=== PATIENT | male | born 1975 | race Caucasian/White ===

== ENCOUNTER 2019-04-06 20:21 | Emergency (ER) | payer OTHER, SELFPAY ==
[2019-04-06 20:35] VITALS: BP 152/97; PULSE 104; RESP 22; TEMP 37.1; O2SAT 100
[2019-04-06 21:18] VITALS: BP 152/97; PULSE 104; RESP 16; TEMP 38; O2SAT 99
[2019-04-06] MEDS: AZITHROMYCIN 250 MG TABLET 1000 MG PO (21:45)
[2019-04-06] MEDS: metroNIDAZOLE 250 MG TABLET 2000 MG PO (21:45)
[2019-04-06] MEDS: cefTRIAXone 250 MG VIAL IM (21:46)
--- NOTE | 2019-04-06 21:50 | PC.NURSE ---
rocephin im rt buttock ventrogluteal
--- NOTE | 2019-04-06 21:52 | ED.GENADULT ---
HPI - General Adult General Chief complaint: Dental/Oral <Darrell Barron PA-C - Last Filed: 04/06/19 21:55> Stated complaint: wound on tongue <Darrell Barron PA-C - Last Filed: 04/06/19 21:55> Time Seen by Provider: 04/06/19 20:32 <Darrell Barron PA-C - Last Filed: 04/06/19 21:55> Source: patient <Darrell Barron PA-C - Last Filed: 04/06/19 21:55> Mode of arrival: ambulatory <Darrell Barron PA-C - Last Filed: 04/06/19 21:55> Limitations: no limitations <Darrell Barron PA-C - Last Filed: 04/06/19 21:55> History of Present Illness HPI narrative: Patient is a 43-year-old male who presents to emergency department for evaluation of wound to the right anterior lateral tongue that is been there for the last several days. Patient also notes he is having drainage from the penis and would like to be tested and treated for STDs. Patient denies vomiting diarrhea or URI symptoms. Patient notes he has had STDs in the past. Patient on arrival is in no distress but is anxious and notes drug use <Darrell Barron PA-C - Last Filed: 04/06/19 21:55> Related Data Home medications: Home Medications Medication Instructions Recorded Confirmed lisinopril 04/06/19 <Darrell Barron PA-C - Last Filed: 04/06/19 21:55> Allergies/adverse reactions: Allergies Allergy/AdvReac Type Severity Reaction Status Date / Time No Known Allergies Allergy Verified 04/06/19 21:26 <Darrell Barron PA-C - Last Filed: 04/06/19 21:55> Review of Systems Review of Systems: All systems reviewed & are unremarkable except as noted in HPI and below <Darrell Barron PA-C - Last Filed: 04/06/19 21:55> [facility] Social History Social History: Social History (Updated 04/06/19 @ 21:53 by Darrell Barron PA-C) Smoking status: Current every day smoker Substance use type: methamphetamine Gender identity (if verbalized by the patient): Male <Darrell Barron PA-C - Last Filed: 04/06/19 21:55> Exam Narrative: Exam Narrative: GENERAL: Well-appearing, well-nourished, and in no acute distress. HEAD: Normocephalic, atraumatic. EYES: PERRLA and EOMI. ENT: Nares clear, no rhinorrhea or epistaxis. Mucous membranes moist. Oropharynx without tonsillar hypertrophy exudate or other lesions. No wounds of the tongue noted CHEST: Clear to auscultation. No respiratory distress. No wheezes rales or rhonchi HEART: Regular rate and rhythm. No murmur heard. EXTREMITIES: Normal range of motion. No edema. SKIN: Warm, dry, no rash. NEURO: No focal deficits. Alert and oriented x3. PSYCH: Normal mood and affect. <MARIANN Austin Last Filed: 04/06/19 21:55> Course Course Emergency Course: Patient in the room in no distress aware of case findings treatment plan and diagnosis <MARIANN Austin Last Filed: 04/06/19 21:55> Vital Signs Vital signs: Vital Signs Temperature 37.1 C 04/06/19 20:35 Pulse Rate 104 H 04/06/19 20:35 Respiratory Rate 22 H 04/06/19 20:35 Blood Pressure 152/97 H 04/06/19 20:35 Pulse Oximetry 100 04/06/19 20:35 Temperature 38.0 C H 04/06/19 21:18 Pulse Rate 104 H 04/06/19 21:18 Respiratory Rate 16 04/06/19 21:18 Blood Pressure 152/97 H 04/06/19 21:18 Pulse Oximetry 99 04/06/19 21:18 <MARIANN Austin Last Filed: 04/06/19 21:55> Vital Signs Temperature 37.1 C 04/06/19 20:35 Pulse Rate 104 H 04/06/19 20:35 Respiratory Rate 22 H 04/06/19 20:35 Blood Pressure 152/97 H 04/06/19 20:35 Pulse Oximetry 100 04/06/19 20:35 Temperature 38.0 C H 04/06/19 21:18 Pulse Rate 104 H 04/06/19 21:18 Respiratory Rate 16 04/06/19 21:18 Blood Pressure 152/97 H 04/06/19 21:18 Pulse Oximetry 99 04/06/19 21:18 <Isis Torres MD - Last Filed: 04/07/19 00:28> Medical Decision Making MDM Narrative Medical decision making narrative: Patient will be referred to ENT f
[2019-04-06 22:03] LABS: Add Urine Microscopic? YES; Appearance Urine Cloudy (Clear); Bacteria Urine Trace /hpf; Bilirubin Urine Negative (Negative); Blood Urine Negative (Negative); Color Urine Yellow (Yellow); Glucose Urine UA Negative (Negative); Ketones Urine Negative (Negative); Leukocyte Esterase Ur Negative LEU/UL (Negative); Mucus Urine Heavy /lpf; Nitrate Urine Negative (Negative); Protein Urine 1+ mg/dL (Negative); Specific Grav Ur 1.019 (1.001-1.035); Urobilinogen Urine Negative mg/dL (<2.0); WBC Urine 0-3 /hpf
[2019-04-06 22:31] LABS: Barbiturate Screen Urine Negative (Negative); Benzodiazepines Screen Urine Negative (Negative)
[2019-04-06 22:33] LABS: Cannabinoid Screen Urine Positive (Negative); Cocaine Screen Urine Negative (Negative); Methadone Screen Urine Negative (Negative); Opiate Screen Urine Negative (Negative); Phencyclidine Screen Urine Negative (Negative)
[2019-04-06 22:52] LABS: Amphetamine Screen Urine Positive (Negative)
== END 2019-04-06 22:02 | disposition home or self-care (01) ==
PROVIDERS: Emergency Medicine Emergency Medical Services; Emergency Provider Emergency Medicine; PCP Registered Nurse
DX: K14.9 Disease of tongue, unspecified (principal); A64 Unspecified sexually transmitted disease; F17.200 Nicotine dependence, unspecified, uncomplicated
CPT/HCPCS: 80307; 81001; 87491; 87591; 96372; 99283; A9270; J0696

== ENCOUNTER 2019-04-12 11:10 | Emergency (ER) | payer OTHER, SELFPAY ==
[2019-04-12 11:23] VITALS: BP 137/76; PULSE 96; RESP 16; TEMP 36.1; O2SAT 100
== END 2019-04-12 12:00 | disposition left against medical advice (07) ==
LOC: EXPCOLL 11:13
PROVIDERS: Emergency Provider Registered Nurse; PCP Registered Nurse
DX: S01.502A Unspecified open wound of oral cavity, initial encounter (principal); X58.XXXA Exposure to other specified factors, initial encounter
CPT/HCPCS: 99199

== ENCOUNTER 2019-06-03 18:58 | Emergency (ER) | payer OTHER, SELFPAY ==
[2019-06-03 19:07] VITALS: BP 142/76; PULSE 109; RESP 18; TEMP 37.4; O2SAT 100
--- NOTE | 2019-06-03 19:36 | ED.GENADULT ---
HPI - General Adult General Chief complaint: Unspecified <MARIANN Snider Last Filed: 06/03/19 20:12> Stated complaint: parasties <Kacy Santillan PA-C - Last Filed: 06/03/19 20:12> Time Seen by Provider: 06/03/19 19:03 <Kacy Santillan PA-C - Last Filed: 06/03/19 20:12> Source: patient <MARIANN Snider Last Filed: 06/03/19 20:12> Mode of arrival: ambulatory <MARIANN Snider Last Filed: 06/03/19 20:12> Limitations: no limitations <MARIANN Snider Last Filed: 06/03/19 20:12> History of Present Illness HPI narrative: Patient is here with his girlfriend because they both feel that they have bugs coming another skin, and there stool in today from his nose. He brought in a specimen. He states that he was treated at another hospital earlier this month for the same condition and was prescribed a green pill and something else that was too expensive. When he was seen here last he was referred to ENT for same same complaint about his mouth and gums having holes in them. He lost the number for the ENT. He feels that he got the bugs as a sexually transmitted disease from his girlfriend. He states that he can feel like bugs moving under his skin, the sores on his legs and hands are from bugs leaving his skin, and he itches all the time. <Kacy Santillan PA-C - Last Filed: 06/03/19 20:12> Onset (ago): week(s) <MARIANN Snider Last Filed: 06/03/19 20:12> Treatments prior to arrival: none <MARIANN Snider Last Filed: 06/03/19 20:12> Related Data Allergies/adverse reactions: Allergies Allergy/AdvReac Type Severity Reaction Status Date / Time No Known Allergies Allergy Verified 06/03/19 19:14 <MARIANN Snider Last Filed: 06/03/19 20:12> Review of Systems Review of Systems: All systems reviewed & are unremarkable except as noted in HPI and below <Kacy Santillan PA-C - Last Filed: 06/03/19 20:12> [facility] Social History Social History: Social History (Updated 06/03/19 @ 19:43 by Kacy Santillan PA-C) Smoking status: Current every day smoker Substance use type: methamphetamine Other substance usage details: is denying meth use at this time. Living arrangements: with family Gender identity (if verbalized by the patient): Male <Kacy Santillan PA-C - Last Filed: 06/03/19 20:12> Exam Const: General: no acute distress and alert <Kacy Santillan PA-C - Last Filed: 06/03/19 20:12> Orientation/consciousness: patient oriented x3 <Kacy Santillan PA-C - Last Filed: 06/03/19 20:12> HENMT: Head: normal to inspection <Kacy Santillan PA-C - Last Filed: 06/03/19 20:12> General nose exam: Normal nasal mucous membranes and turbinates present <Kacy Santillan PA-C - Last Filed: 06/03/19 20:12> Mouth: Yes Normal oral and palatal mucosa present and Yes tongue normal <Kacy Santillan PA-C - Last Filed: 06/03/19 20:12> Teeth and gingiva: caries <Kacy Santillan PA-C - Last Filed: 06/03/19 20:12> Eyes: Pupils: Equal, round and reactive pupils present <Kacy Santillan PA-C - Last Filed: 06/03/19 20:12> Resp: Effort & Inspection: normal respiratory effort <Kacy Santillan PA-C - Last Filed: 06/03/19 20:12> Auscultation: clear to auscultation bilaterally <Kacy Santillan PA-C - Last Filed: 06/03/19 20:12> Cardio: Rate: regular rate <Kacy Santillan PA-C - Last Filed: 06/03/19 20:12> Rhythm: regular rhythm <Kacy Santillan PA-C - Last Filed: 06/03/19 20:12> Skin: General skin exam: normal color <MARIANN Snider Last Filed: 06/03/19 20:12> Wounds: wounds noted (multiple scabs on legs, hands and arms.) <MARIANN Snider Last Filed: 06/03/19 20:12> Extrem: General: normal to inspection <MARIANN Snider Last Filed: 06/03/19 20:12> Psych: Appearance: grossly normal <MARIANN Snider Last Filed: 06/03/19 20:12> Course Course Emergency Course: Pt is
== END 2019-06-03 20:15 | disposition home or self-care (01) ==
PROVIDERS: Emergency Provider General Practice; PCP Registered Nurse
DX: Z71.1 Person with feared health complaint in whom no diagnosis is made (principal); F17.200 Nicotine dependence, unspecified, uncomplicated
CPT/HCPCS: 36415; 87169; 87177; 87209; 99283

== ENCOUNTER 2019-06-17 02:38 | Emergency (ER) | payer OTHER, SELFPAY ==
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
[2019-06-17 03:05] VITALS: BP 138/109; PULSE 120; RESP 18; TEMP 36.6; O2SAT 100
--- NOTE | 2019-06-17 03:13 | PC.NURSE ---
PT BLOWING HIS NOSE IN HIS HANDS. PT STATES I WILL MAKE THESE WORMS COME OUT. PT PICKING HIS NOSE. PT GIRLFRIEND REPEATEDLY SAYING LOOK AT THIS TOE NAIL, THERE ARE WORMS ALL OVER IT. NO WORMS NOTED.
== END 2019-06-17 03:27 | disposition home or self-care (01) ==
PROVIDERS: Emergency Provider Emergency Medicine
DX: S90.212A Contusion of left great toe with damage to nail, initial encounter (principal); R20.2 Paresthesia of skin; F17.203 Nicotine dependence unspecified, with withdrawal; X58.XXXA Exposure to other specified factors, initial encounter
CPT/HCPCS: 99281

== ENCOUNTER 2020-03-29 00:57 | Emergency (ER) | payer OTHER, SELFPAY ==
[2020-03-29 01:04] VITALS: BP 161/114; PULSE 105; RESP 20; TEMP 36.8; O2SAT 100
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
[2020-03-29 01:33] VITALS: BP 148/92; PULSE 94; RESP 16; TEMP 36.8; O2SAT 100
== END 2020-03-29 01:34 | disposition home or self-care (01) ==
PROVIDERS: Emergency Provider Nurse Practitioner; PCP Registered Nurse
DX: T59.891A Toxic effect of other specified gases, fumes and vapors, accidental (unintentional), initial encounter (principal); T23.531A Corrosion of first degree of multiple right fingers (nail), not including thumb, initial encounter; T32.0 Corrosions involving less than 10% of body surface; F17.200 Nicotine dependence, unspecified, uncomplicated
CPT/HCPCS: 99282

== ENCOUNTER 2022-10-12 15:48 | Emergency (ER) | payer OTHER, SELFPAY ==
[2022-10-12] VITALS (11 sets, daily range): BP systolic 113–138; BP diastolic 72–93; PULSE 92–114; RESP 13–16; O2SAT 98–100
--- NOTE | ~2022-10-12 | XR_ITS ---
EXAMINATION: XR chest 2V DATE: 10/12/2022 16:36 INDICATION: Chest pain TECHNIQUE: PA and lateral views of the chest are obtained. COMPARISON: 08/11/2011 FINDINGS: The lungs are free of acute opacities. No pleural effusion or pneumothorax. The cardiomedia stinal silhouette is normal. The visualized bones and soft tissues are unremarkable. IMPRESSION: 1. No acute cardiopulmonary abnormality. Reviewed, dictated and finalized at location A.
--- NOTE | 2022-10-12 15:49 | ECG_ITS ---
Measurements Intervals [place] Rate: 104 P: 48 RI: 157 QRS: -11 QRSD: 95 T: 69 QT: 324 QTc: 428 Interpretive Statements SINUS TACHYCARDIA POSSIBLE LEFT ATRIAL ENLARGEMENT [-0.1mV P WAVE IN V1/V2] NONSPECIFIC T-WAVE ABNORMALITY ABNORMAL RHYTHM ECG NO PREVIOUS ECG AVAILABLE FOR COMPARISON Electronically Signed On 10-13-2022 11:13:13 CDT by Jessica Garcia M.D.
[2022-10-12 16:10] LABS: Basophils Percent Auto 0.3 % (0.2-1.2); Eosinophils Absolute Auto 0.1 K/mm3 (0-0.3); Hematocrit 47.5 % (42.0-52.0); Hemoglobin 16.2 g/dL (14.0-18.0); Immature Granulocyte Absolute 0.02 K/mm3 (0.00-0.031); Immature Granulocyte Percent A 0.2 % (0-0.5); Lymphocytes Absolute Auto 2.39 K/mm3 (0.9-3.2); Lymphocytes Percent Auto 24.5 % (18.3-44.2); Mean Corpuscular HGB Conc 34.1 g/dl (32-36); Mean Corpuscular Hemoglobin 30.7 pg (26-34); Mean Corpuscular Volume 90.1 fl (80-100); Mean Platelet Volume 10.1 fl (7.4-10.4); Monocytes Absolute Auto 0.6 K/mm3 (0.1-0.6); Monocytes Percent Auto 6.6 % (2.6-8.5); Neutrophils Absolute Auto 6.6 K/mm3 (1.3-6.7); Neutrophils Percent Auto 67.4 % (45.5-73.1); Platelet Count Result 392 k/mm3 (150-375); Red Blood Count 5.27 M/mm3 (4.6-6.20); Red Cell Distribution Width 12.6 % (11.5-14.5); White Blood Count 9.8 K/mm3 (4.5-10.0)
[2022-10-12 16:20] LABS: Alanine Aminotransferase 32 U/L (6-50); Albumin Level 4.8 g/dL (3.5-5.1); Alkaline Phosphatase 90 U/L (38-126); Anion Gap 11 mmol/L (8-16); Aspartate Amino Transferase 27 U/L (17-59); Bilirubin,Total 0.7 mg/dL (0.2-1.3); Blood Urea Nitrogen 14 mg/dL (9-20); Calcium 8.9 mg/dL (8.4-10.2); Carbon Dioxide 21 mmol/L (22-30); Chloride 104 mmol/L (98-107); Estimated Glomerular Filt Rate > 60; Glucose 165 mg/dL (65-110); Lipase 32 U/L (23-300); Potassium 3.3 mmol/L (3.4-5.0); Sodium 136 mmol/L (137-145)
[2022-10-12 16:21] LABS: INR 0.9; Prothrombin Time 12.9 Seconds (11.1-14.7)
[2022-10-12 16:22] LABS: Partial Thromboplastin Time 28.3 SECONDS (22.3-36.8)
[2022-10-12 16:32] LABS: Troponin I < 0.012 ng/mL (0.000-0.034)
[2022-10-12 19:33] LABS: Troponin I < 0.012 ng/mL (0.000-0.034)
--- NOTE | 2022-10-12 23:16 | ED.GENADULT ---
HPI - General Adult General Chief complaint: Chest Pain Stated complaint: cp Time Seen by Provider: 10/12/22 19:05 History of Present Illness HPI narrative: This is a 46-year-old male with history of developmental delay presenting for shortness of breath and chest pain. Patient says that he got up and tried to move heavy box 2 days ago and he became short of breath and started to have some chest tightness. Chest tightness was in the center of his chest, nonradiating, 8 out 10 intensity, resolved after 30 minutes rest. he has never had pain like this before there are no exacerbating relieving symptoms. It was not associated with diaphoresis, cough fevers nausea vomiting. He does not currently have symptoms. patient states he thinks he is just out of shape. He says that his activity involves lying in bed and smoking cigarettes. Related Data Home Medications Medication Instructions Recorded Confirmed lisinopril 10 mg tablet 10 mg PO DAILY 06/17/19 06/17/19 Allergies Allergy/AdvReac Type Severity Reaction Status Date / Time No Known Allergies Allergy Verified 10/12/22 18:31 [facility] Past Medical History Medical History No significant past medical history Surgical History Surgical History No significant past surgical history Social History Social History Smoking status: Current every day smoker Substance use type: methamphetamine Other substance usage details: is denying meth use at this time. Living arrangements: with family Gender identity (if verbalized by the patient): Male Exam Narrative: APPEARANCE: No apparent distress. Head: atraumatic. EYES: EOMI, NOSE: Atraumatic NECK: Trachea midline RESPIRATORY: No increased rate of breathing, clear to auscultation CARDIOVASCULAR: RRR, no peripheral edema ABDOMINAL: Non-distended MUSCULOSKELETAl: No obvious deformities NEURO: Alert. Moving 4/4 extremities SKIN:: Warm, dry. Normal color PSYCHIATRIC: Normal affect Course Vital Signs Vital signs: Vital Signs Pulse Rate 97 10/12/22 18:36 Respiratory Rate 16 10/12/22 18:36 Blood Pressure 128/93 H 10/12/22 18:36 Pulse Oximetry 98 10/12/22 18:36 Pulse Rate 100 10/12/22 21:00 Respiratory Rate 16 10/12/22 21:00 Blood Pressure 138/87 10/12/22 21:00 Pulse Oximetry 99 10/12/22 21:00 Medical Decision Making MDM Narrative Medical decision making narrative: -Presentation: 46-year-old male presenting with shortness of breath and some chest tightness when lifting heavy box. -DDX includes but is not limited to: ACS, asthma, debility, pneumonia, pneumothorax, PE -Co-morbidities complicating care: developmental delay, sedentary lifestyle, tobacco use -Social determinants of health: disabled due to mentation. -External Chart Review: -Hx from independent Sources: oncology social work at bedside -Independent interpretation of studies: laboratory studies within acceptable limits. Troponins negative x2. Chest x-ray unremarkable. Independent EKG interpretation: Rhythm [sinus], Rate [104], Ledger -[normal], CT -[normal], QRS [narrow], QTC [normal], T waves -[negative for concerning inversions], ST Segments - [Negative for concerning elevations] Final interpretations: sinus tachycardia -Shared decision making / Disposition: Patient's EKGs and labs are reviewed without significant high risk changes. Cardiac risk factors reviewed. Heart score is <4 and it iss reasonable for further risk stratification to be performed as outpatient. Pain was not sudden or maximal onset not tearing or ripping quality. No other signs or symptoms suggest aortic dissection. A low risk Wells criteria is noted. PE is felt to be unlikely. No pneumonia seen on evaluation today. Patient is felt to be reasonable candidate
== END 2022-10-12 23:27 | disposition home or self-care (01) ==
LOC: ANHED 19:36
PROVIDERS: Emergency Medicine; Emergency Provider Emergency Medicine; PCP Emergency Medicine
DX: R07.89 Other chest pain (principal); F17.200 Nicotine dependence, unspecified, uncomplicated; R00.0 Tachycardia, unspecified; R94.31 Abnormal electrocardiogram [ECG] [EKG]
CPT/HCPCS: 36415; 71046; 80053; 83690; 84484; 85025; 85610; 85730; 93005; 99284

== ENCOUNTER 2023-09-23 11:19 | Emergency (ER) | payer OTHER, SELFPAY ==
[2023-09-23 11:25] VITALS: BP 122/62; PULSE 96; RESP 16; TEMP 36.3; O2SAT 100
[2023-09-23 12:24] VITALS: BP 123/79; PULSE 79; RESP 20; O2SAT 97
[2023-09-23 12:52] LABS: Glucose Point of Care 112 mg/dl (65-105)
--- NOTE | 2023-09-23 12:54 | ED.GENADULT ---
HPI - General Adult General Chief complaint: Eye Problems Stated complaint: eye problems Time Seen by Provider: 09/23/23 12:23 History of Present Illness HPI narrative: This is a 47-year-old male with developmental delay and poor insight into his medical conditions presenting for eye irritation. Patient has had eye irritation for 3 days. No pain. No changes in vision. No foreign bodies in his eyes. No associated URI symptoms cough congestion or allergies. Patient states that 1 of his friends recently got a crystal ball and he has been looking into it and he was curious if that is what is irritating his eyes. Patient has a returned case inspector who handles most of his medical visits. She is not here today Related Data Home Medications Medication Instructions Recorded Confirmed lisinopril 10 mg tablet 10 mg PO DAILY 06/17/19 06/17/19 Allergies Allergy/AdvReac Type Severity Reaction Status Date / Time No Known Allergies Allergy Verified 10/12/22 18:31 [facility] Past Medical History Medical History (Updated 09/23/23 @ 13:00 by French Aleman MD) Developmental delay, moderate Diabetes No significant past medical history Surgical History Surgical History No significant past surgical history Social History Social History Smoking status: Current every day smoker Substance use type: methamphetamine Other substance usage details: is denying meth use at this time. Living arrangements: with family Gender identity (if verbalized by the patient): Male Exam Narrative: APPEARANCE: No apparent distress. Head: atraumatic. EYES: EOMI, extraocular eye movements intact. IOP 12 bilaterally, fluorescein stain uptake negative. Visual acuity at baseline. NOSE: Atraumatic NECK: Trachea midline RESPIRATORY: No increased rate of breathing CARDIOVASCULAR: RRR, ABDOMINAL: Non-distended MUSCULOSKELETAl: No obvious deformities NEURO: Alert. Moving 4/4 extremities SKIN:: Warm, dry. Normal color PSYCHIATRIC: Normal affect Course Vital Signs Vital signs: Vital Signs Temperature 97.3 F L 09/23/23 11:25 Pulse Rate 96 09/23/23 11:25 Respiratory Rate 16 09/23/23 11:25 Blood Pressure 122/62 09/23/23 11:25 Pulse Oximetry 100 08/01/24 11:25 Oxygen Delivery Room Air 09/23/23 11:25 Temperature 97.3 F L 09/23/23 11:25 Pulse Rate 79 09/23/23 12:24 Respiratory Rate 20 09/23/23 12:24 Blood Pressure 123/79 09/23/23 12:24 Pulse Oximetry 97 09/23/23 12:24 Oxygen Delivery Room Air 09/23/23 11:25 Medical Decision Making MDM Narrative Medical decision making narrative: -Course: 47-year-old male presenting with 3 days of eye irritation. Eye exam unremarkable. Patient will be given eyedrops for moisturization. Instructed follow-up with primary care physician content strategist for further management. -DDX includes but is not limited to: Keratoconjunctivitis sicca, corneal ulceration, allergic conjunctivitis -Co-morbidities complicating care: developmental delay, diabetes -Social determinants of health: patient this with family, he has a returned case inspector cyst him with his care -Shared decision making / Disposition: discharged -RX moisturizing eyedrops Vital Signs Vital Signs: Vital Signs Temperature 97.3 F L 09/23/23 11:25 Pulse Rate 96 09/23/23 11:25 Respiratory Rate 16 09/23/23 11:25 Blood Pressure 122/62 09/23/23 11:25 Pulse Oximetry 100 09/23/23 11:25 Oxygen Delivery Room Air 09/23/23 11:25 Temperature 97.3 F L 09/23/23 11:25 Pulse Rate 79 09/23/23 12:24 Respiratory Rate 20 09/23/23 12:24 Blood Pressure 123/79 09/23/23 12:24 Pulse Oximetry 97 09/23/23 12:24 Oxygen Delivery Room Air 09/23/23 11:25 Lab Data Labs: Lab Results 09/23/23 Range/Units 12:50 POC Capillary Glucose 112 H (65-105) mg/dl
[2023-09-23 13:24] VITALS: PULSE 82; RESP 14; O2SAT 100
== END 2023-09-23 13:25 | disposition home or self-care (01) ==
PROVIDERS: Emergency Provider Emergency Medicine; PCP Emergency Medicine
DX: H57.10 Ocular pain, unspecified eye (principal); R62.50 Unspecified lack of expected normal physiological development in childhood; F17.200 Nicotine dependence, unspecified, uncomplicated
CPT/HCPCS: 82948; 99283

== ENCOUNTER 2024-07-11 23:13 | Emergency (ER) | payer OTHER, SELFPAY ==
[2024-07-11 23:14] VITALS: BP 140/83; PULSE 100; RESP 18; TEMP 36.6; O2SAT 100
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
--- OUTSIDE RECORDS SUMMARY | 2024-07-11 23:14 | XMS_ITS | Data Portability ---
Author Organization [place] - [facility], [employer] Address [address] [place] [address] Assessment Encounter Date Assessment Date Assessment LastModified by Organization Details LastModified Time 12/13/2023 12/13/2023 Assessment: Hypertension, well-controlled (I10) Current blood pressure is at goal despite not taking antihypertensive medications. Will continue to monitor. Type 2 Diabetes Mellitus, uncontrolled (E11.65) Non-adherence to medication (Jardiance) and dietary recommendations. At risk for hyperlipidemia and other complications if diabetic control is not achieved. Poor nutritional habits contributing to suboptimal diabetes control (Z72.4) Patient admits to unhealthy eating habits and periods of food avoidance, putting him at risk for further metabolic complications. Plan: Diabetes management: Reinforce the importance of medication adherence, particularly with Jardiance, to manage blood sugar levels effectively. Encourage consistent use of the medication. Order labs to assess HbA1c, lipid profile, renal function, and liver enzymes. Adjust follow-up based on lab results. Dietary counseling: Provided extensive counseling on the importance of adhering to a diabetic diet to manage both diabetes and cholesterol levels. Referred to a solar energy installation manager/eitan tovar for formal dietary planning and education on healthy eating to support better blood sugar control and overall health. Lifestyle modifications: Discussed the importance of regular meals and reducing the intake of processed and junk foods. Encouraged small, frequent meals rich in vegetables, lean proteins, and whole grains. Recommended increasing physical activity if cleared by future labs and based on blood sugar management. Follow-up: Return for follow-up in 3 months, sooner if labs indicate worsening control or need for intervention. Will review lab results and adjust care plan as necessary. Signs and symptoms of when to seek further care reviewed with patient/caregiver/ family/facility staff. Patient to follow up with primary care provider or return to clinic for any worsening signs and symptoms. Always present to ER or Urgent Care with any progression of/alarming symptoms, significant changes in symptoms or any concerning or urgent matters. Patient/caregiver/ family/facility staff verbalized agreement and understanding of treatment plan. F/U 12 weeks, sooner if needed My total encounter time was 60 minutes which was spent in the activities documented in the note. This includes time spent prior to the visit, performing a medically appropriate examination with evaluation, and after the visit in direct care of the patient (history and exam; ordering prescriptions/labs /imaging/home health/therapy/spe cialists; communicating results to patient and/or other relative individuals; counseling/educati ng patient; documenting clinical information in patient s chart; coordination of care for the patient). This time does not include time spent in any separately reportable services. [email or web address] Not available 12/13/2023 15:55:32 Plan of Treatment Reminders Order Date Submit Date Provider Last Modified By Organization Details Last Modified Time Details Appointments None recorded. Lab drug screen, urine 2023 [facility], [address], [place], [address], 15:30:42 lipid panel, serum 2023 [facility], [id number] [place], [address], 10:41:46 CMP, serum or plasma 2023 [facility], [id number] [place], [address], 10:41:48 CBC 2023 [facility] [facility], [address] [place], [address], 11:26:35 magnesium, serum or plasma 2023 [facility], [address] [place], [address], 10:41:47 HbA1c (hemoglobi n A1c), blood 2023 [facility] [place] [facility], [address] [place], [address], 10:44:16 urinalysis , complete 2023 [facility] [place] [facility], [address], [place] Vas[place], [address], 11:26:[address]/dietiti an referral [address], [address] [place], [address], 11:13:59 Procedures None recorded. Surgeries None recorded. Imaging None recorded. Medication Orders None recorded. Patient TargetsNo targets recorded. Patient InstructionsNo instructions recorded. Reason for Referral Skiver Machine Operator/dietitian Refer ral for Hyperglycemia due to type 2 diabetes mellitus Referring Physician: Leslie Argueta, Internal Medicine, Encounter Date: 12/13/2023 Results Created Date Observation Date Name Description Value Unit Range Abnormal Flag Note LastModifiedBy Organization Detail LastModifiedTime 12/13/1912/14/2023 LIPID PANEL , STAND VANESSA cholesterol, total 188 mg/dL <200 normal Not Available [facility] [address] [place], [address], 12/14/2023 10:41:46 12/13/1912/14/2023 LIPID PANEL , STAND VANESSA HDL cholesterol 40 mg/dL > or = 40 normal Not Available [facility] [address] [place], [address], 12/14/2023 10:41:46 12/13/1912/14/2023 LIPID PANEL , STAND VANESSA triglyceride s 157 mg/dL <150 high Not Available [facility] [address] [place], [address], 12/14/2023 10:41:46 12/13/1912/14/2023 LIPID PANEL , STAND VANESSA LDL-choleste rol 121 mg/dL _(channing c) high Refer ence range : <100 Ayde able range <100 mg/dL for prima ry preve ntion ; <70 mg/dL for patie nts with CHD or diabe tic patie nts with > or = 2 CHD risk facto rs. LDL-C is now calcu lated using the Deisi n-Hop kins calcu latio n, which is a valid ated novel luiso d browni everett reid r accur acy than the Fried emmanuelle equat ion in the estim ation of LDL-C . Deisi messer SS et al. CARLOS. 2013; 310(1 9): 2061- 2068 (http ://ed ati on.Qu Kristy Newswired. com/f aq/FA Q164) Not Available [facility] [address], [place], [address], 12/14/2023 10:41:46 12/13/19 24 12/14/2023 LIPID PANEL , STAND VANESSA chol/HDLC ratio 4.7 (calc ) <5.0 normal Not Available [facility] [address] [place], [address], 12/14/2023 10:41:46 12/13/19 24 12/14/2023 LIPID PANEL , STAND VANESSA non HDL cholesterol 148 mg/dL _(channing c) <130 high For patie nts with diabe pretty plus 1 major ASCVD risk facto r, treat ing to a non-H DL-C goal of <100 mg/dL (LDL- C of <70 mg/dL ) is consi jada joy optio n. Not Available [facility] [address] [place], [address], 12/14/2023 10:41:46 10/12/14/2023 MAGNE SIUM magnesium 2.3 mg/dL 1.5-2. 5 normal Not Available [address], [address], 12/14/2023 10:41:47 12/13/1912/14/2023 COMPR EHENS RUDDY METAB OLIC PANEL glucose 105 mg/dL 65-99 high Fasti ng refer ence inter sumeet For someo ne witho ut known diabe pretty, a gluco se value betwe en 100 and 125 mg/dL is consi stent with predi abete s and shoul d be confi rmed with a follo w-up test. Not Available [address], [address], 12/14/2023 10:41:48 12/13/19 24 12/14/2023 COMPR EHENS RUDDY METAB OLIC PANEL urea nitrogen (BUN) 18 mg/dL 7-25 normal Not Available [address], [address], 12/14/2023 10:41:48 12/13/19 24 12/14/2023 COMPR EHENS RUDDY METAB OLIC PANEL creatinine 0.96 mg/dL 0.60-1 .29 normal Not Available [address], [address], 12/14/2023 10:41:48 12/13/19 24 12/14/2023 COMPR EHENS RUDDY METAB OLIC PANEL eGFR 99 mL/mi n/1.7 3m2 > or = 60 normal Not Available [address], [address], 12/14/2023 10:41:48 12/13/19 24 12/14/2023 COMPR EHENS RUDDY METAB OLIC PANEL BUN/creatini ne ratio SEE NOTE: (calc ) 6-22 Not Repor vi: BUN and Creat inine are withi n refer ence range . Not Available [address] [place], [address], 12/14/2023 10:41:48 12/13/1912/14/2023 COMPR EHENS RUDDY METAB OLIC PANEL sodium 138 mmol/ L 135-14 6 normal Not Available [address], [address], 12/14/2023 10:41:48 12/13/1912/14/2023 COMPR EHENS RUDDY METAB OLIC PANEL potassium 3.7 mmol/ L 3.5-5. 3 normal Not Available [address], [address], 12/14/2023 10:41:48 12/13/1912/14/2023 COMPR EHENS RUDDY METAB OLIC PANEL chloride 102 mmol/ L 98-110 normal Not Available [address], [address], 12/14/2023 10:41:48 12/13/1912/14/2023 COMPR EHENS RUDDY METAB OLIC PANEL carbon dioxide 29 mmol/ L 20-32 normal Not Available [address], [address], 12/14/2023 10:41:48 12/13/1912/14/2023 COMPR EHENS RUDDY METAB OLIC PANEL calcium 9.6 mg/dL 8.6-10 .3 normal Not Available [address], [address], 12/14/2023 10:41:48 12/13/1912/14/2023 COMPR EHENS RUDDY METAB OLIC PANEL protein, total 7.4 g/dL 6.1-8. 1 normal Not Available [address], [address], 12/14/2023 10:41:48 12/13/1912/14/2023 COMPR EHENS RUDDY METAB OLIC PANEL albumin 4.4 g/dL 3.6-5. 1 normal Not Available [address], [address], 12/14/2023 10:41:48 12/13/1912/14/2023 COMPR EHENS RUDDY METAB OLIC PANEL globulin 3.0 g/dL_ (calc ) 1.9-3. 7 normal Not Available [address], [address], 12/14/2023 10:41:48 12/13/1912/14/2023 COMPR EHENS RUDDY METAB OLIC PANEL albumin/glob ulin ratio 1.5 (calc ) 1.0-2. 5 normal Not Available [address], [address], 12/14/2023 10:41:48 12/13/1912/14/2023 COMPR EHENS RUDDY METAB OLIC PANEL bilirubin, total 0.6 mg/dL 0.2-1. 2 normal Not Available [address], [address], 12/14/2023 10:41:48 12/13/1912/14/2023 COMPR EHENS RUDDY METAB OLIC PANEL alkaline phosphatase 121 U/L 36-130 normal Not Available [place] [address] [place], [address], 12/14/2023 10:41:48 12/13/19 24 12/14/2023 COMPR EHENS RUDDY METAB OLIC PANEL AST 34 U/L 10-40 normal Not Available [address], [address], 12/14/2023 10:41:48 12/13/19 24 12/14/2023 COMPR EHENS RUDDY METAB OLIC PANEL ALT 74 U/L 9-46 high Not Available [address], [address], 12/14/2023 10:41:48 12/13/1912/14/2023 CBC (H/H, RBC, INDIC ES, WBC, PLT) white blood cell count 10.1 thous and/u L 3.8-10 .8 normal Not Available [address], [address], 12/14/2023 12:02:02 12/13/1912/14/2023 CBC (H/H, RBC, INDIC ES, WBC, PLT) red blood cell count 5.42 bess on/uL 4.20-5 .80 normal Not Available [address], [address], 12/14/2023 12:02:02 12/13/19 24 12/14/2023 CBC (H/H, RBC, INDIC ES, WBC, PLT) hemoglobin 15.7 g/dL 13.2-1 7.1 normal Not Available [address], [address], 12/14/2023 12:02:02 12/13/1912/14/2023 CBC (H/H, RBC, INDIC ES, WBC, PLT) hematocrit 48.7 % 38.5-5 0.0 normal Not Available [address], [address], 12/14/2023 12:02:02 12/13/19 24 12/14/2023 CBC (H/H, RBC, INDIC ES, WBC, PLT) MCV 89.9 fL 80.0-1 00.0 normal Not Available [address], [address], 12/14/2023 12:02:02 12/13/19 24 12/14/2023 CBC (H/H, RBC, INDIC ES, WBC, PLT) MCH 29.0 pg 27.0-3 3.0 normal Not Available [address], [address], 12/14/2023 12:02:02 12/13/1912/14/2023 CBC (H/H, RBC, INDIC ES, WBC, PLT) MCHC 32.2 g/dL 32.0-3 6.0 normal For adult s, a sligh t decre ase in the calcu lated MCHC value (in the range of 30 to 32 g/dL) is most likel y not clini therese signi fican t; domo er, it shoul d be inter prete d with cauti on in corre lat n with other red cell danette eters and the patie nt's clini channing condi tion. Not Available [address], [address], 12/14/2023 12:02:02 12/13/1912/14/2023 CBC (H/H, RBC, INDIC ES, WBC, PLT) RDW 12.3 % 11.0-1 5.0 normal Not Available [address], [address], 12/14/2023 12:02:02 12/13/19 24 12/14/2023 CBC (H/H, RBC, INDIC ES, WBC, PLT) platelet count 528 thous and/u L 140-40 0 high Not Available [address], [address], 12/14/2023 12:02:02 12/13/19 24 12/14/2023 CBC (H/H, RBC, INDIC ES, WBC, PLT) MPV 10.3 fL 7.5-12 .5 normal Not Available [address], [address], 12/14/2023 12:02:02 12/13/19 24 12/14/2023 URINA LYSIS , COMPL ETE color DARK YELLOW yellow normal Not Available [facility] [address] [place], [address], 12/14/2023 12:21:31 12/13/1912/14/2023 URINA LYSIS , COMPL ETE appearance CLOUDY clear abnormal Not Available [address], [address], 12/14/2023 12:21:31 12/13/1912/14/2023 URINA LYSIS , COMPL ETE specific gravity 1.041 1.001- 1.035 high Not Available [address], [address], 12/14/2023 12:21:31 12/13/1912/14/2023 URINA LYSIS , COMPL ETE pH 5.5 5.0-8. 0 normal Not Available [address], [address], 12/14/2023 12:21:31 12/13/1912/14/2023 URINA LYSIS , COMPL ETE glucose 2+ negati ve abnormal Not Available [address], [address], 12/14/2023 12:21:31 12/13/1912/14/2023 URINA LYSIS , COMPL ETE bilirubin NEGATI VE negati ve normal Not Available [address], [address], 12/14/2023 12:21:31 12/13/1912/14/2023 URINA LYSIS , COMPL ETE ketones NEGATI VE negati ve normal Not Available [address], [address], 12/14/2023 12:21:31 12/13/1912/14/2023 URINA LYSIS , COMPL ETE occult blood NEGATI VE negati ve normal Not Available [address], [address], 12/14/2023 12:21:31 12/13/1912/14/2023 URINA LYSIS , COMPL ETE protein TRACE negati ve abnormal Not Available [address], [address], 12/14/2023 12:21:31 12/13/19 24 12/14/2023 URINA LYSIS , COMPL ETE nitrite NEGATI VE negati ve normal Not Available [address], [address], 12/14/2023 12:21:31 12/13/1912/14/2023 URINA LYSIS , COMPL ETE leukocyte esterase TRACE negati ve abnormal Not Available [address], [address], 12/14/2023 12:21:31 12/13/1912/14/2023 URINA LYSIS , COMPL ETE WBC 0-5 /hpf < or = 5 normal Not Available [address], [address], 12/14/2023 12:21:31 12/13/19 24 12/14/2023 URINA LYSIS , COMPL ETE RBC 0-2 /hpf < or = 2 normal Not Available [address], [address], 12/14/2023 12:21:31 12/13/19 24 12/14/2023 URINA LYSIS , COMPL ETE squamous epithelial cells NONE SEEN /hpf < or = 5 normal Not Available [address], [address], 12/14/2023 12:21:31 12/13/1912/14/2023 URINA LYSIS , COMPL ETE bacteria NONE SEEN /hpf none seen normal Not Available [address], [address], 12/14/2023 12:21:31 12/13/19 24 12/14/2023 URINA LYSIS , COMPL ETE calcium oxalate crystals MODERA TE /hpf none or few abnormal Not Available [facility] [address] [place], [address], 12/14/2023 12:21:31 12/13/19 24 12/14/2023 URINA LYSIS , COMPL ETE hyaline cast NONE SEEN /lpf none seen normal Not Available [facility] [address] [place], [address], 12/14/2023 12:21:31 12/13/1912/14/2023 HEMOG LOBIN A1C hemoglobin A1C 6.0 %_of_ total _HGB <5.7 high For someo ne witho ut known diabe pretty, a hemog lobin A1c value betwe en 5.7% and 6.4% is consi stent with predi abete s and shoul d be confi rmed with a follo w-up test. For someo ne with known diabe pretty, a value <7% indic ates that their diabe pretty is well contr olled . A1c targe ts shoul d be indiv idual ized based on durat ion of diabe pretty, age, comor bid condi tions , and other consi derat ions. This assay resul t is consi stent with an incre ased risk of diabe pretty. Curre ntly, no conse nsus exist s salbador floyd use of hemog lobin A1c for diagn osis of diabe pretty for child serafin. Not Available [facility] [address] [place], [address], 12/14/2023 11:24:53 Result Notes None recorded. Problems Name Problem SNOMED Code Status Onset Date Resolution Date Notes Provider Name and Address Organization Details Recorded Time Hyperglycem ia due to type 2 diabetes mellitus 3425795247060 09 Active 2023 Leslie Argueta, MOTOR EQUIPMENT COMMANDING OFFICER-BC, PMHNP-BC [address] [place], [address], [facility] 15:55:33 Essential hypertensio n [id number] Active 2023 Leslie Ksasandra Kendall, MOTOR EQUIPMENT COMMANDING OFFICER-BC, PMHNP-BC [address] [place], [address], [facility] 15:55:33 Problem Notes None recorded. Procedures Surgical History Date Name Laterality Status Provider Name and Address Organization Details Recorded Time tonsillectomy completed Cindy Roberto [facility] 12/10/2023 17:20:37 Back Surgery completed Cindy Roberto [facility] 12/10/2023 17:20:47 Imaging Results None recorded. Procedure Notes None recorded. Medical Equipment None Reported. Medications Name Sig Start Date Stop Date Status Note LastModified by Organization Details LastModified Time prazosin 1 mg capsule 12/12 completed Not Available Not Available Not Available sertraline 100 mg tablet Take 1 tablet every day by oral route for 30 days. 12/12 completed Not Available Not Available Not Available quetiapine 100 mg tablet Take 1 tablet every day by oral route at bedtime for 30 days. 12/12 completed Not Available Not Available Not Available lamotrigine 25 mg tablet 12/12 completed Not Available Not Available Not Available prazosin 5 mg capsule Take 1 capsule every day by oral route at bedtime for 30 days. 12/12 completed Not Available Not Available Not Available OneTouch Ultra Test strips TEST EVERY MORNING BEFORE BREAKFAST 12/12 completed Not Available Not Available Not Available divalproex ER 500 mg tablet,exte nded release 24 hr 12/12 completed Not Available Not Available Not Available aspirin 81 mg chewable tablet Chew 1 tablet every day by oral route for 30 days. active Not Available Not Available No t Available ergocalcife rol (vitamin D2) 1,250 mcg (50,000 unit) capsule Take 1 capsule every week by oral route for 28 days. active Not Available Not Available No t Available sertraline 50 mg tablet 12/12 completed Not Available Not Available Not Available prazosin 2 mg capsule 12/12 completed Not Available Not Available Not Available divalproex ER 250 mg tablet,exte nded release 24 hr 12/12 completed Not Available Not Available Not Available aripiprazol e 5 mg tablet 12/12 completed Not Available Not Available Not Available rosuvastati n 20 mg tablet 12/12 completed Not Available Not Available Not Available quetiapine 50 mg tablet 12/12 completed Not Available Not Available Not Available Jardiance 10 mg tablet Take 1 tablet every day by oral route for 30 days. active Not Available Not Available No t Available Vraylar 1.5 mg capsule 12/12 completed Not Available Not Available Not Available Vraylar 4.5 mg capsule TAKE 1 CAPSULE BY MOUTH EVERY DAY active Not Available Not Available No t Available Vraylar 3 mg capsule 12/12 completed Not Available Not Available Not Available OneTouch Ultra2 Meter DIRECTED 12/12 completed Not Available Not Available Not Available OneTouch Delica Plus Lancet 33 gauge TEST EVERY MORNING 12/12 completed Not Available Not Available Not Available Vitals Date Recorded Body temperature Oxygen saturation Oxygen saturation in Arterial blood by Pulse oximetry Heart rate Respiratory rate Body height Body mass index (BMI) Body weight Systolic blood pressure Diastolic blood pressure Provider Name and Address Organization Details Last Updated DateTime 97.9 [degF] 99 % 99 % 111 /min 18 /min 166.37 cm 33.1 kg/m2 99876.3 8 g 138 mm[Hg] 88 mm[Hg] Cindy Philippe [facility] 13:50:12 Social History Question Answer Notes LastModified by Organizat ion Details LastModified Time Tobacco Smoking Status Current Every Day Smoker Cindy salazar [facility] 12/07/2023 10:17:23 Do You Have An Advance Directive? No [email or web address] Information n ot available 12/07/2023 Are You Currently Sexually Active With Anyone Who Has Traveled (within The Last 12 Weeks) To A Zika-affected Area? No [email or web address] Information not available 12/07/2023 Do You Wear A Helmet When Biking? Yes [email or web address] Information not available 12/07/2023 Are You Blind Or Do You Have Difficulty Seeing? Yes [email or web address] Information n ot available 12/07/2023 Is Blood Transfusion Acceptable In An Emergency? Yes [email or web address] Information not available 12/07/2023 What Is Your Level Of Caffeine Consumption? None [email or web address] Information not available 12/07/2023 What Type Of Deportation Examiner Do You Use? None Information not available 12/07/2023 What Is Your Code Status? Full Code [email or web address] Information not available 12/07/2023 In The 14 Days Before Symptom Onset, Have You Had Close Contact With A Laboratory-confirm ed COVID-19 While That Case Was Ill? No [email or web address] Information n ot available 12/07/2023 In The 14 Days Before Symptom Onset, Have You Had Close Contact With A Person Who Is Under Investigation For COVID-19 While That Person Was Ill? No Information not available 12/07/2023 Have You Been To An Area Known To Be High Risk For COVID-19? No [email or web address] Information not available 12/07/2023 Are You Deaf Or Do You Have Serious Difficulty Hearing? No Information not available 12/07/2023 What Type Of Diet Are You Following? REGULAR [email or web address] Information n ot available 12/07/2023 Have You Processed Blood Or Body Fluids From An Ebola Virus Disease Patient Without Appropriate PPE? No [email or web address] Information not available 12/07/2023 Do You Reside In Or Have You Traveled To An Area Where Ebola Virus Transmission Is Active? No [email or web address] Information not available 12/07/2023 What Is The Highest Grade Or Level Of School You Have Completed Or The Highest Degree You Have Received? [id number] [email or web address] Information not available 12/07/2023 Have There Been Any Changes To Your Family Or Social Situation? No [email or web address] Information no t available 12/13/2023 Are There Any Guns Present In Your Home? No [email or web address] Information not available 12/07/2023 Which Of Your Hands Is Dominant? Right Information n ot available 12/07/2023 Have You Recently Or Are You Planning To Travel To An Area With Zika Virus? No [email or web address] Information not available 12/07/2023 Do You Have A Medical Power Of Scoreboard Operator? No [email or web address] Information not available 12/07/2023 What Was The Date Of Your Most Recent Tobacco Screening? 12/13/2023 [email or web address] Information not available 12/13/2023 How Many Children Do You Have? 1 [email or web address] Information not available 12/07/2023 What Is Your Current Pack Years? 30ormorepack years [email or web address] Information not available 12/13/2023 Do You Have Any Pets? Yes Information not available 12/07/2023 Do You Use Protection During Sex? No [email or web address] Information not available 12/13/2023 What Is Your Relationship Status? Single [email or web address] Information not available 12/07/2023 Do You Use Your Seat Belt Or Car Seat Routinely? Yes [email or web address] Information not available 12/07/2023 Are You Sexually Active? Yes [email or web address] Information not available 12/13/2023 Do You Have Smoke And Carbon Monoxide Detectors In Your Home? Yes [email or web address] Information not available 12/07/2023 At What Age Did You Start Smoking Tobacco? 32 [email or web address] Information not available 12/13/2023 Are You Passively Exposed To Smoke? No [email or web address] Information no t available 12/07/2023 How Much Tobacco Do You Smoke? 1 PPW [email or web address] Information not available 12/07/2023 Do You Participate In Social Media? No [email or web address] Information not available 12/07/2023 Do You Use Sunscreen Routinely? No [email or web address] Information not available 12/07/2023 How Many Years Have You Smoked Tobacco? 10 [email or web address] Information not available 12/07/2023 Have You Recently Traveled Abroad? No [email or web address] Information not available 12/07/2023 Do You Have Difficulty Walking Or Climbing Stairs? No [email or web address] Information not available 12/07/2023 Are You Currently In School? No [email or web address] Information not available 12/07/2023 Do You Have Any Dietary Restrictions? No [email or web address] Information not available 12/07/2023 Sex: Unknown Functional Status Question Answer Note LastModified by Organization Details LastModified Time Do you use any illicit or recreational drugs? No History of methamphetamine use, but not currently. caguado Information not available 12/13/2023 Do you or have you ever used any other forms of tobacco or nicotine? No [email or web address] Information not available 12/07/2023 What is your level of alcohol consumption? None [email or web address] Information not available 12/07/2023 Are you currently employed? No [email or web address] Information not available 12/07/2023 Do you have transportation difficulties? Yes [email or web address] Information not available 12/07/2023 Are you able to walk? YESWOREST [email or web address] Information not available 12/07/2023 Do you have difficulty doing errands alone? Yes [email or web address] Information not available 12/07/2023 Are you able to care for yourself? Yes [email or web address] Information not available 12/07/2023 Do you have difficulty dressing or bathing? No [email or web address] Information not available 12/07/2023 What is your exercise level? None [email or web address] Information not available 12/07/2023 Mental Status Question Answer Note LastModified by Organizat ion Details LastModified Time Do you feel stressed (tense, restless, nervous, or anxious, or unable to sleep at night)? [id number] [email or web address] Information not available 12/07/2023 Do you have difficulty concentrating, remembering or making decisions? Yes [email or web address] Information no t available 12/07/2023 Family History Relationship Description Onset Age of this Age Resolved Age Notes LastModified by Organization Details LastModified Time Mother Arthritis Not avail able 12/10/2023 17:21:03 Father Arthritis [email or web address] Not avail able 12/10/2023 17:21:03 Father Diabetes mellitus [email or web address] Not available 11/22 17:21:12 Medical History Condition Response Hematological Diseases / Disorders Y Glaucoma N Anxiety Disorder Y Musculoskeletal Diseases / Disorders Fractures Schizophrenia Y Eye Disease / Disorders Y Osteoarthritis Hospitalizations Y Ear, Nose, Throat Diseases / Disorders Y Diabetes Y Gastrointestinal Diseases / Disorders Y Infectious Disease/Disorders/Virus Y Hyperlipidemia Y Alcohol / Drug Abuse Y Hypertension Y Past Encounters Encounter ID Performer Location Encounter Start Date Encounter Closed Date Diagnosis/Indication Diagnosis SNOMED-CT Code Diagnosis ICD10 Code Diagnosis Note [id number] Leslie Kassandra Kendall, CEM-, PMHNP- Main Office [address] [place] [address] 12/13/2023 13:42:42 12/13/2023 15:56:59 Essential hypertension 32229803 I10 Hyperglyce tamra due to type 2 diabetes mellitus 6548449953 69509 E11.65 Screening for cardiovascular system disease 032560255 Z13.6 History of drug abuse 37 7823152 F19.11 Health Concerns Section Related Observation LastModified by Organization Detai ls LastModified Time None Recorded Concern Status LastModified by Organization Details LastModified Time None Recorded Advance Directives Directive N: Payers Encounter Date Sequence Insurance Name Policy Number Policy Gonzalez Covered Member ID Gonzalez Member ID Guarantor Name 12/13/2023 1 [facility] ON OR AFTER 08/22/20 (MEDICAID REPLACEMENT - HMO) Cisco Jin [id number] Cisco Jin Notes Date Note Type Note Provider Name and Address Organization Details Recorded Time 12/13/2023 text/html Cisco is a 47-year-old male presenting for the establishment of care for hypertension (HTN) and type 2 diabetes mellitus (DM II). He reports not taking any medication for HTN, but his current blood pressure is at goal. Cisco admits to consuming a large amount of processed and junk foods with minimal intake of healthy foods. He has been prescribed Jardiance for his diabetes but is not consistent with taking the medication. He also reports not adhering to a diabetic diet. His dietary habits include going several days without eating, which puts him at increased risk for complications related to diabetes, including elevated cholesterol. He expresses some awareness of the need to improve his eating habits but has not yet made significant changes. JAZLYN Fernandez, PMHNP-MICHAEL [address] [place], [address], [facility] - [facility] 12/13/2023 15:56:23
--- OUTSIDE RECORDS SUMMARY | 2024-07-11 23:14 | XMS_ITS | CONTINUITY OF CARE DOCUMENT ---
Author Name murray ago Address Unknown Organization [facility] Address [address] [facility] [address] [place] [address] Phone [phone] Care Team Providers Care Early Years Teacher Name Role Phone Lawrence Payton MD Unavailable PAULINE BANDA MD Unavailable [phone] PAULINE BANDA MD Unavailable [phone] PROBLEMS Condition Status Date Provider Notes PREDIABETES; active Lawrence Payton MD Tricuspid regurgitation, mild active Lawrence Payton MD Diastolic dysfunction active Lawrence Payton MD Hyperlipidemia;with high crp AND LOW LPA active Lawrence Payton MD Vitamin D deficiency active Lawrence Mcmullen Schizophrenia active Lawrence Payton MD Obesity active Lawrence Payton MD Tobacco dependence, continuous active Anitha Payton MD Screening active Lawrence Payton MD inclonsi ue sleep Hypertriglyceridemia active Lawrence Mcmullen nml ldl, hiigh crp and low lpa Thrombocytosis NML B12 AND IRON active Lawrence Payton MD covid 19;2020;HAD VACCINE active Lawrence fernandez MD Hydronephrosis active Lawrence Payton MD mild one side 21 BACK PAIN;CHRONIC active Lawrence Payton MD Chest pain, atypical active Lawrence Mcmullen ENCOUNTERS Date Type Provider Location Encounter Diag nosis 10/12 - 10/12 In-person encounter Office Visit Lawrence Payton MD [facility] Screening 07/28 - 07/28 In-person encounter Office Visit Lawrence Payton MD [facility] 07/28 - 07/28 In-person encounter Office Visit Lawrence Payton MD [facility] 11/12 - 11/12 In-person encounter Office Visit Lawrence Payton MD [facility] SchizophreniaObesityTobacco dependence, continuousScreeningHypertriglyceridemiaThrombocytos is NML B12 AND IRONcovid ;2020;HAD VACCINEHydronephrosisBACK PAIN;CHRONICChest pain, atypical VITAL SIGNS Date Observation Value Provider Body Mass Index (Ratio) 36.77 kg/m2 Efra Payton MD blood pressure, cuff size regular Jonny aguayo Espinoza blood pressure, diastolic 82 mm[Hg] Ta olivier Espinoza blood pressure, systolic 112 mm[Hg] Justyn [facility] Espinoza oxygen saturation, oximetry 97 % Ioana Espinoza respiratory rate E&M 12 /min [place] pulse rate 99 /min Ioana Espinoza weight E&M 221 [lb_av] Ioana Espinoza height E&M 65 [in_i] Ioana Espinoza Body Mass Index (Ratio) 37.11 kg/m2 Efra Payton MD blood pressure, diastolic 86 mm[Hg] Li nkLograjat blood pressure, systolic 119 mm[Hg] Vera kLograjat blood pressure, cuff size regular Tr boo Galvez blood pressure, diastolic 86 mm[Hg] Tr boo Galvez blood pressure, systolic 119 mm[Hg] Rajinder mohsen Galvez oxygen saturation, oximetry 95 % Mateusz Galvez respiratory rate E&M 18 /min Mateusz Galvez pulse rate 120 /min Mateusz Galvez weight E&M 223 [lb_av] Mateusz Galvez weight E&M 189 [lb_av] Slime thomas Body Mass Index (Ratio) 31.45 kg/m2 Efra Payton MD blood pressure, diastolic 81 mm[Hg] Li nkLogic blood pressure, systolic 110 mm[Hg] Vera kLogic blood pressure, cuff size regular Ja rret blood pressure, diastolic 81 mm[Hg] Ja rret blood pressure, systolic 110 mm[Hg] Jar ret oxygen saturation, oximetry 97 % Charles respiratory rate E&M 12 /min Charles pulse rate 87 /min Charles y height E&M 65 [in_i] Charles y weight E&M 189 [lb_av] Charles y ALLERGIES No Known Drug Allergies RESULTS Date Observation Value Provider Reference Range Interpretation Location 8 hemoglobin A1C, blood, as % of total hemoglobin 6.1 % OF TOTAL HGB [facility] <5.7 High 8 thyroid stimulating hormone, serum 0.82 u[IU]/mL [facility] 0.40-4.50 Normal 8 thyroxine, serum, free 0.9 ng/dL [facility] 0.8-1.8 Normal 8 triiodothyronine (T3), serum 95 ng/dL [facility] 76-181 Normal 8 basophils as percent of blood leukocytes 0.4 % [facility] Normal 8 eosinophils as percent of blood leukocytes 1.3 % [facility] Normal 8 monocyte count, blood 5.0 % [facility] Normal 8 lymphocyte count, blood 20.3 % [facility] Normal 8 neutrophils as percent of blood leukocytes 73 % [facility] Normal 8 basophils, absolute, manual 44 cells/mcL [facility] 0-200 Normal 8 eosinophils, absolute, manual 142 cells/mcL [facility] 15-500 Normal 8 monocytes, absolute, manual 545 cells/mcL [facility] 200-950 Normal 8 lymphocytes, absolute 2213 CELLS/UL [facility] 850-3900 Normal 8 Absolute Neutrophil count 7957 cells/mcL [facility] 2396-5281 High 8 mean platelet volume 10.6 fL [facility] 7.5-12.5 Normal 8 platelet count 454 THOUSAND/ UL [facility] 140-400 High 8 red blood cell distribution width 12.2 % [facility] 11.0-15.0 Normal 8 mean corpuscular hemoglobin concentration, RBC 32.7 G/DL [facility] 32.0-36.0 Normal 8 mean corpuscular hemoglobin, RBC 30.0 pg [facility] 27.0-33.0 Normal 8 mean corpuscular volume, RBC 91.7 fL [facility] 80.0-100.0 Normal 8 hematocrit, blood 48.3 % [facility] 38.5-50.0 Normal 8 hemoglobin electrophoresis, blood 15.8 [facility] 13.2-17.1 Normal 8 erythrocyte (RBC) count 5.27 MILLION/U L [facility] 4.20-5.80 Normal 8 leukocyte (white blood cells) count, blood 10.9 THOUSAND/ UL [facility] 3.8-10.8 High 8 D-dimer quantitative mcg/mL 0.27 MCG/ML FEU [facility] <0.50 Normal 8 calcium, serum 9.4 mg/dL [facility] 8.6-10.3 Normal 8 carbon dioxide, venous blood 24 mmol/L [facility] 20-32 Normal 8 chloride, serum 102 mmol/L [facility] 98-110 Normal 2024/06/2 8 potassium, serum 4.5 mmol/L [facility] 3.5-5.3 Normal 8 sodium, serum 136 mmol/L [facility] 135-146 Normal 8 urea nitrogen/creatinine ratio, serum SEE NOTE: (calc) [facility] 6-22 8 creatinine, serum 1.23 mg/dL [facility] 0.60-1.29 Normal 8 urea nitrogen, blood 20 mg/dL [facility] 7-25 Normal 8 blood glucose, random 242 mg/dL [facility] 65-99 High 8 NT-pro BNP <36 [facility] <125 Normal 8 microalbumin/creatin ine ratio, urine 3 MG/G CREAT [facility] <30 Normal 8 microalbumin/total urine volume 10 mg/L [facility] Units converted. See lab report for original value. Normal 8 creatinine, random, urine 292 mg/dL [facility] 20-320 Normal 8 cholesterol, non-HDL, total 146 MG/DL (CALC) [facility] <130 High 8 cholesterol/HDL ratio, serum, percent 4.7 (calc) [facility] <5.0 Normal 8 LDL cholesterol, serum 115 MG/DL (CALC) [facility] High 8 triglyceride, serum, fasting 193 mg/dL [facility] <150 High 8 HDL cholesterol, serum 40 mg/dL [facility] > OR = 40 Normal 8 cholesterol, serum 186 mg/dL [facility] <200 Normal 4 hemoglobin A1C, blood, as % of total hemoglobin 4.8 % OF TOTAL HGB [facility] <5.7 Normal 4 B-12, serum 778 pg/mL [facility] 200-1100 Normal 4 ferritin, serum 148 ng/mL [facility] 38-380 Normal 4 C-reactive protein, by highly sensitive test 5.9 mg/L [facility] High 4 basophils as percent of blood leukocytes 0.5 % [facility] Normal 4 eosinophils as percent of blood leukocytes 3.1 % [facility] Normal 4 monocyte count, blood 9.3 % [facility] Normal 4 lymphocyte count, blood 28.4 % [facility] Normal 4 neutrophils as percent of blood leukocytes 58.7 % [facility] Normal 4 basophils, absolute, manual 46 cells/mcL [facility] 0-200 Normal 4 eosinophils, absolute, manual 285 cells/mcL [facility] 15-500 Normal 4 monocytes, absolute, manual 856 cells/mcL [facility] 200-950 Normal 4 lymphocytes, absolute 2613 CELLS/UL [facility] 850-3900 Normal 4 Absolute Neutrophil count 5400 cells/mcL [facility] 1322-4593 Normal 4 mean platelet volume 10.5 fL [facility] 7.5-12.5 Normal 4 platelet count 436 THOUSAND/ UL [facility] 140-400 High 4 red blood cell distribution width 12.6 % [facility] 11.0-15.0 Normal 4 mean corpuscular hemoglobin concentration, RBC 34.1 G/DL [facility] 32.0-36.0 Normal 4 mean corpuscular hemoglobin, RBC 32.0 pg [facility] 27.0-33.0 Normal 4 mean corpuscular volume, RBC 93.9 fL [facility] 80.0-100.0 Normal 4 hematocrit, blood 45.8 % [facility] 38.5-50.0 Normal 4 hemoglobin electrophoresis, blood 15.6 [facility] 13.2-17.1 Normal 4 erythrocyte (RBC) count 4.88 MILLION/U L [facility] 4.20-5.80 Normal 4 leukocyte (white blood cells) count, blood 9.2 THOUSAND/ UL [facility] 3.8-10.8 Normal 4 alanine aminotransferase (SGPT), serum 27 1/L [facility] 9-46 Normal 4 aspartate aminotransferase (SGOT), serum 19 1/L [facility] 10-40 Normal 4 alkaline phosphatase, serum 83 1/L [facility] 36-130 Normal 4 bilirubin, serum, total 0.3 mg/dL [facility] 0.2-1.2 Normal 4 albumin/globulin ratio, serum 1.7 (calc) [facility] 1.0-2.5 Normal 4 globulins, serum, total 2.6 G/DL (CALC) [facility] 1.9-3.7 Normal 4 albumin, serum 4.5 g/dL [facility] 3.6-5.1 Normal 4 protein, total, serum 7.1 g/dL [facility] 6.1-8.1 Normal 4 calcium, serum 9.4 mg/dL [facility] 8.6-10.3 Normal 4 carbon dioxide, venous blood 23 mmol/L [facility] 20-32 Normal 4 chloride, serum 104 mmol/L [facility] 98-110 Normal 4 potassium, serum 4.4 mmol/L [facility] 3.5-5.3 Normal 4 sodium, serum 136 mmol/L [facility] 135-146 Normal 4 urea nitrogen/creatinine ratio, serum SEE NOTE: (calc) [facility] 6-22 4 creatinine, serum 0.72 mg/dL [facility] 0.60-1.29 Normal 4 urea nitrogen, blood 15 mg/dL [facility] 7-25 Normal 4 blood glucose, random 105 mg/dL [facility] 65-99 High 4 iron saturation percent, serum 22 % (CALC) [facility] 20-48 Normal 4 iron binding capacity, total 407 MCG/DL (CALC) [facility] 250-425 Normal 4 iron, serum 89 ug/dL [facility] 50-180 Normal 4 microalbumin/creatin ine ratio, urine NOTE mcg/mg creat [facility] <30 Normal 4 microalbumin/total urine volume <0.2 mg/dL [facility] See Note: Normal 4 creatinine, random, urine 38 mg/dL [facility] 20-320 Normal 4 cholesterol, non-HDL, total 188 MG/DL (CALC) [facility] <130 High 4 cholesterol/HDL ratio, serum, percent 6.5 (calc) [facility] <5.0 High 4 LDL cholesterol, serum * mg/dL (calc) [facility] 4 triglyceride, serum, fasting 557 mg/dL [facility] <150 High 4 HDL cholesterol, serum 34 mg/dL [facility] > OR = 40 Low 4 cholesterol, serum 222 mg/dL [facility] <200 High HISTORY OF MEDICATION USE Medication Status Instructions Dates Provider Indications Com ments aspirin 81 mg tablet,chewable active CHEW AND SWALLOW 1 TABLET BY MOUTH EVERY DAY Purvi Ventimiglia DRY PRIMER POWDER BLENDER Crestor 20 mg tablet active TAKE 1 TABLET BY MOUTH ONCE A DAY Purvi [place]im[place] DRY PRIMER POWDER BLENDER Jardiance 10 mg tablet active TAKE 1 TABLET BY MOUTH EVERY DAY Purvi [place] DRY PRIMER POWDER BLENDER Vraylar 4.5 mg capsule active Purvi [place] DRY PRIMER POWDER BLENDER sertraline 100 mg tablet active Purvi [place]im[place] DRY PRIMER POWDER BLENDER prazosin 5 mg capsule active Purvi [place]imig[place] DRY PRIMER POWDER BLENDER lamotrigine 25 mg tablet active Purvi [place]imig[place] DRY PRIMER POWDER BLENDER Crestor 20 mg tablet completed Take 1 tablet by mouth every night - Purvi Ventimiglia DRY PRIMER POWDER BLENDER ergocalciferol (vitamin D2) 1,250 mcg (50,000 unit) capsule active Take 1 capsule by mouth once a week Purvi Ventimiglia DRY PRIMER POWDER BLENDER aspirin 81 mg tablet,chewable completed TAKE 1 TABLET BY MOUTH EVERY DAY - Purvi Ventimiglia DRY PRIMER POWDER BLENDER divalproex 500 mg tablet extended release 24 hr completed - Purvi Ventimiglia [facility] divalproex 250 mg tablet extended release 24 hr completed - Purvi Ventimiglia [facility] aripiprazole 5 mg tablet completed - [facility] sertraline 50 mg tablet completed - [facility] divalproex unspecified unspecified completed - Lawrence Payton MD SOCIAL HISTORY Date Observation Value Provider personal history of marijuana use no Purvi Ventimiglia [facility] drug use yes Purvi Ventimig naye [facility] alcohol use no Purvi Ventimig naye [facility] smoking/tobacco cess ation, patient education and counseling yes Purvi Ventimiglia [facility] smoking history, tot al pack/day 1.5 Purvi Ventimiglia [facility] cigarette use yes Purvi Ventimi glia [facility] smoking status Current every day smoker A amelia Ventimiglia [facility] personal history of marijuana use no Purvi Ventimiglia [facility] drug use no Purvi Ventimig naye [facility] alcohol use no Purvi Ventimig naye [facility] smoking/tobacco cess ation, patient education and counseling yes Purvi Ventimiglia [facility] smoking history, tot al pack/day 1.5 Purvi Ventimiglia [facility] cigarette use yes Purvi Ventimi glia [facility] smoking status Current every day smoker A amelia Ventimiglia [facility] smoking/tobacco cess ation, patient education and counseling yes Lawrence Payton MD social history E&M S moking History: P frantz currently smokes every day. Lawrence Payton MD social history reviewed E&M revi ewed - no changes required Lawrence Payton MD smoking history, tot al pack/day 1.5 Charles nel cigarette use yes Charles Butterfield ay smoking status Current every day smoker J saeed INSURANCE PROVIDERS Payer name Policy type / Coverage type Chilo red green party ID [place] MEDICAID (2) Medicaid [id number] ADVANCE DIRECTIVES Name Date DISCUSSED - NO DECISION MADE TREATMENT PLAN Date Name Performer [id number],C,nml pap Anitha Payton MD [id number],SLawrence MD [id number],SLawrence MD [id number],SLawrence MD [id number],C,n eg egfr and lipase, neg hiv and rpr and chest ct Lawrence Payton MD [id number],SLawrence MD [id number],S,neg stress ec ho 17 Lawrence Payton MD Cardiology;sleep peinding :cessa tion encouraged [facility] Cardiology;sleep viviana nding :glucose 242 on recent labs b egin Tiffaniejose cance [facility] Cardiology;sleep peinding :on re placement therapy [facility] Cardiology;sleep viviana nding :LDL 115 T rig 193 r emains on statin H is updated medication list for this problem includes: Crestor 20 Mg Tablet (Rosuvastatin) ..... Take 1 tablet by mouth every night [facility] Cardiology;sleep viviana nding :with continued SOB. pBNP 36 on recent labs w ill trial Jardiance S OB however, may be related to untreated JUAN and tobacco abuse [facility] Cardiology;sleep viviana nding :no further reports h is stress PET was normal [facility] Cardiology;sleep viviana nding :neg egfr and uacr and dd and tsh n eg egfr and lipase, neg hiv and rpr and chest ct Purvijose l Rodrigezkalerachel [facility] :neg pet 24, neg sxtress echo 17 Lawrence Payton MD :ef 60, pro less hunt 36 Lawrence quinonez MD :6.1 Lawrence Payton MD Cardiology Thorndike [place] rachel [facility] Cardiology:weight loss encourage d. Thorndike Rainkalerachel [facility] Cardiology:cessation encouraged Thorndike Mary Alice [facility] Cardiology:trig 557 on last labs O n statin W ill update lipid panel and check HgbA1C as patient reports now diabetic H is updated medication list for this problem includes: Crestor 20 Mg Tablet (Rosuvastatin) ..... Take 1 tablet by mouth every night Thorndike Mary Alice [facility] Cardiology:Continues to have reports of chest pain that is worse with exertion and better with rest-more typical in nature E KG today shows sinus tachycardia W ill update labs W ill update CXR H ave recommended PET Stress as treadmill test previously showed poor exercise tolerance Thorndike Mary Alice [facility] Cardiology:Last echo showed EF of 60% with diastolic dysfunctino H e has had increasing SOB W ill do CXR to look for any pulm vasc congestion W ill also check pBNP W ill add Jardiance as well Purvijose l Rodrigezkalerachel [facility] :nml pap Lawrence Payton MD Cardiology Lawrence Payton MD Cardiology Lawrence Payton MD Cardiology Lawrence Payton MD Cardiology:neg egfr and lipase, neg hiv and rpr and chest ct Lawrence Payton MD Cardiology Lawrence Payton MD Cardiology:neg stress echo 17 Forbes yi Payton MD Date Name D-DIMER, QUANTITATIV E TSH, free T4, total T3 EKG DLCO - 24412 FRC - 27694 FVC - 94095 CXR- PA/Lat CBC (INCLUDES DIFF/P LT) PROBNP, N TERMINAL Stress Cardiac PET-C T PROBNP, N TERMINAL BASIC METABOLIC PANE L W/EGFR LIPID PANEL HEMOGLOBIN A1c Microalb/Creatinine Urine, Random Complete Echo Stress Routine LIPID PANEL Microalb/Creatinine Urine, Random HEMOGLOBIN A1c COMPREHENSIVE METABO LIC PANEL, W/EGFR VITAMIN B12 Vitamin D, 25-Hydrox y IRON AND TOTAL IRON BINDING CAPACITY FERRITIN CBC (INCLUDES DIFF/P LT) CRP, high sensitivit y Lipoprotein (a) HISTORY OF PROCEDURES Procedure Date Procedure Name Provider Procedure Notes S tatus EKG Lawrence Payton MD complete d
--- OUTSIDE RECORDS SUMMARY | 2024-07-11 23:15 | XMS_ITS ---
Author Organization [facility] Address [address] [place] [address] Care Team Providers Care Rehabilitation Attendant Name Role Phone Celia Laureano Primary Care Provider REASON FOR VISIT Crisis Call/Hospital F/U Medications Medication SIG (Take, Route, Frequency, Duration) Notes Start Date End Date Status Prazosin HCl 5 MG 1 capsule at bedtime Orally Once a day for 30 days Active QUEtiapine Fumarate 100 MG 1 tablet at bedtime Orally Once a day for 30 days Active Rosuvastatin Calcium 20 MG 1 tablet Orally Once a day Not-Taking Aspirin 81 81 MG 1 tablet Orally Once a day Not-Taking Vraylar 4.5 MG 1 capsule Orally Onc e a day for 30 days Active Sertraline HCl 100 MG 1 tablet Orally On ce a day for 30 days Active Social History Sex Assigned At : Social History Observation Description Sex Assigned At Male Encounters Encounter Location Date Provider Diagnosis [address] [address] 10/21/2023 Celia Laureano Plan Of Treatment No Information Progress Notes * JANUARYCisco NicoleDOB:1975 ([age] yo M)Acc No.[id number]:10/21/2023 UNLOCKED PROGRESS NOTE Patient: Cisco MALDONADO Provider: Heron Laureano, JAYLENE, ELECTRONIC SYSTEM ENGINEER, PMHNP-BC :1975 A ge:47 Y S ex:Male Date:10/21/2023 Address:[facility] [place] [facility] Subjective: * Chief Complaints: * 1 . Crisis Call/Hospital F/U. * Medical History: * Medications: T aking Sertraline HCl 100 MG Tablet 1 tablet Orally Once a day , Taking Prazosin HCl 5 MG Capsule 1 capsule at bedtime Orally Once a day , Taking QUEtiapine Fumarate 100 MG Tablet 1 tablet at bedtime Orally Once a day , Taking Vraylar 4.5 MG Capsule 1 capsule Orally Once a day , Not-Taking Rosuvastatin Calcium 20 MG Tablet 1 tablet Orally Once a day , Not-Taking Aspirin 81 81 MG Tablet Delayed Release 1 tablet Orally Once a day Objective: * Vitals: Assessment: Plan: * Treatment: * Recommended Wellness and Pre vention Guidelines: * S tatus A lert L ast Done N ext Due A ction Taken N ONCOMPLIANT C olorectal cancer screening - 0 10/21/2023 - N ONCOMPLIANT H IV screening - 0 10/21/2023 - * * Electronic signature of Nancy Joshi , [id number] on 07/11/2024 at 11:15 PM CDT Sign off status: Pending * Provider: Heron Laureano, DNP, ELECTRONIC SYSTEM ENGINEER, PMHNP-BC Date: 0 10/21/2023 Generated for Printing/Faxing/eTransmitting on: 0 07/11/2024 11:15 PM CDT
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
--- OUTSIDE RECORDS SUMMARY | 2024-07-11 23:15 | XMS_ITS ---
Author Organization [facility] Address [address] [place] [address] Care Team Providers Care Offshore Wind Turbine Technician Name Role Phone Celia Laureano Primary Care Provider REASON FOR VISIT Crisis Call/Hospital F/U Social History Sex Assigned At : Social History Observation Description Sex Assigned At Male Encounters Encounter Location Date Provider Diagnosis [address] [address] 11/11/2023 Celia Laureano Plan Of Treatment No Information Progress Notes * Cisco JINDOB:1975 ([age] yo M)Acc No.[id number]:11/11/2023 UNLOCKED PROGRESS NOTE Patient: Cisco MALDONADO Provider: Heron Laureano, DNP, BELT SPLICER, PMHNP-BC :1975 A ge:47 Y S ex:Male Date:11/11/2023 Address:[address] [place] [address], [place] Subjective: * Chief Complaints: * 1 . Crisis Call/Hospital F/U. * Medical History: Objective: * Vitals: Assessment: Plan: * Treatment: * * Electronic signature of Nancy Joshi , [id number] on 07/11/2024 at 11:14 PM CDT Sign off status: Pending * Provider: Heron Laureano DNP, BELT SPLICER, PMHNP-BC Date: 0 11/11/2023 Generated for Printing/Faxing/eTransmitting on: 0 07/11/2024 11:14 PM CDT
--- OUTSIDE RECORDS SUMMARY | 2024-07-11 23:15 | XMS_ITS | Clinical Summary ---
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 Gender Identity Not on file Sexual Orientation Not on file Plan of Treatment Health Maintenance Due Date Last Done Comments Hepatitis C Virus (HCV) Screening 1977 Hepatitis B Immunization (1 of 3 - 19+ 3-dose series) 1996 Colonoscopy 2022 Colorectal Cancer Screening 2022 Influenza Immunization (#1) 10/24/202310/23, 04/25/2018 SARS-COV-2 Immunization ( season) 2023 Respiratory Syncytial Virus (RSV) Immunization (Adult) (1 - 1-dose 75+ series) 2052 DTaP/Tdap/Td Immunization Discontinued 04/25/2018 TdaP Immunization Completed 04/25/2018 Meningococcal Immunization (ACWY) Aged Out No longer eligible based on patient's age to complete this topic Pneumococcal Immunization Combined Aged Out No longer eligible based on patient's age to complete this topic Rotavirus Immunization Aged Out No lo nger eligible based on patient's age to complete this topic
--- NOTE | 2024-07-12 01:15 | PC.NURSE ---
RN called out for pt to go back to a room at 00:45 and pt did not respond to call out. Jovanna called out for pt a second time at 01:11, pt did not respond to call out. Pt walked out before being seen.
--- OUTSIDE RECORDS SUMMARY | 2024-07-12 01:22 | XMS_ITS | CONTINUITY OF CARE DOCUMENT ---
Author Name murray gao Address Unknown Organization [facility] Address [address] [place] [address] Phone [phone] Care Team Providers Care Dish Up Person Name Role Phone Lawrence Payton MD Unavailable PAULINE BANDA MD Unavailable [phone] PAULINE BANDA MD Unavailable [phone] PROBLEMS Condition Status Date Provider Notes PREDIABETES; [...] In-person encounter Office Visit Lawrence Payton MD [place] [facility] Screening 07/28 - 07/28 In-person encounter Office Visit Lawrence Payton MD [facility] Office 07/28 - 07/28 In-person encounter Office Visit Lawrence Payton MD [place] [facility] 11/12 - 11/12 In-person encounter Office Visit Lawrence Payton MD [place] [facility] SchizophreniaObesityTobacco dependence, continuousScreeningHypertriglyceridemiaThrombocytos is NML B12 AND IRONcovid ;2020;HAD VACCINEHydronephrosisBACK PAIN;CHRONICChest pain, atypical VITAL SIGNS Date Observation Value Provider Body Mass Index (Ratio) 36.77 kg/m2 Efra Payton MD blood pressure, cuff size regular Jonny aguayo Espinoza blood pressure, diastolic 82 mm[Hg] Ta olivier Espinoza blood pressure, systolic 112 mm[Hg] [facility] daytonmaribel Espinoza oxygen saturation, oximetry 97 % Ioana Espinoza respiratory rate E&M 12 /min [facility] 99 /min Ioana Espinoza weight [...] 12 /min Charles pulse rate 87 /min Chalres y height E&M 65 [in_i] Charles y [...] 8 Absolute Neutrophil count 7957 cells/mcL [employer] [id number] High 8 mean platelet volume 10.6 fL [...] 4 Absolute Neutrophil count 5400 cells/mcL [employer] [id number] Normal 4 mean platelet volume 10.5 fL [...] TABLET BY MOUTH EVERY DAY Purvi Ventimiglia RENEWAL SPECIALIST Crestor 20 mg tablet active TAKE 1 TABLET BY MOUTH ONCE A DAY Purvi Ventimiglia RENEWAL SPECIALIST Jardiance 10 mg tablet active TAKE 1 TABLET BY MOUTH EVERY DAY Purvi Ventimiglia RENEWAL SPECIALIST Vraylar 4.5 mg capsule active Purvi Ventimiglia RENEWAL SPECIALIST sertraline 100 mg tablet active Purvi Ventimiglia RENEWAL SPECIALIST prazosin 5 mg capsule active Purvi Ventimiglia RENEWAL SPECIALIST lamotrigine 25 mg tablet active Purvi Ventimiglia RENEWAL SPECIALIST Crestor 20 mg tablet completed Take 1 tablet by mouth every night - Purvi Ventimiglia RENEWAL SPECIALIST ergocalciferol (vitamin D2) 1,250 mcg (50,000 unit) capsule active Take 1 capsule by mouth once a week Purvi Ventimiglia RENEWAL SPECIALIST aspirin 81 mg tablet,chewable completed TAKE 1 TABLET BY MOUTH EVERY DAY - Purvi Ventimiglia RENEWAL SPECIALIST divalproex 500 mg tablet extended release 24 hr completed - Purvi Ventimiglia [facility] divalproex 250 mg tablet extended release 24 hr completed - Purvi Ventimiglia [facility] aripiprazole 5 mg tablet completed - [facility] sertraline 50 mg tablet completed - [facility] divalproex unspecified unspecified completed - Lawrence Payton MD SOCIAL HISTORY Date Observation Value Provider personal history of marijuana use no Purvi Ventimiglia [facility] drug use yes Purvi Ventimig naye [facility] alcohol use no Purvi Ventimig naye [facility] smoking/tobacco cess ation, patient education and counseling yes Purvi Ventimiglia [facility] smoking history, tot al pack/day 1.5 Purvi Ventimiglia [facility] cigarette use yes Purvi Ventimi glia [facility] smoking status Current every day smoker A amelia Ventimiglia [facility] personal history of marijuana use no Purvi Ventimiglia [facility] drug use no Purvi Ventimig naye [facility] alcohol use no Purvi Ventimig naye [facility] smoking/tobacco cess ation, patient education and counseling yes Purvi Ventimiglia [facility] smoking history, tot al pack/day 1.5 Purvi Ventimiglia [facility] cigarette use yes Purvi Ventimi glia [facility] smoking status Current every day smoker A amelia Ventimiglia [facility] smoking/tobacco cess ation, patient education [...] Policy type / Coverage type Chilo red libertarian [place] MEDICAID (2) Medicaid [id number] ADVANCE DIRECTIVES Name Date DISCUSSED - NO DECISION MADE TREATMENT PLAN Date Name Performer [id number],C,nml pap Anitha Payton MD [id number],SLawrence MD [id number],SLawrence MD [id number],SLawrence MD [id number],C,n eg egfr and lipase, neg hiv and rpr and chest ct Lawrence Payton MD [id number],SLawrence MD [id number],S,neg stress ec ho 17 Lawrence Payton MD Cardiology;sleep peinding :cessa tion encouraged [facility] Cardiology;sleep viviana nding :glucose 242 on recent labs b egin Tiffaniejose cance [facility] Cardiology;sleep peinding :on re placement therapy [facility] Cardiology;sleep viviana nding :LDL 115 T rig 193 r emains on statin H is updated medication list for this problem includes: Crestor 20 Mg Tablet (Rosuvastatin) ..... Take 1 tablet by mouth every night [facility] Cardiology;sleep viviana nding :with continued SOB. pBNP 36 on recent labs w ill trial Jardiance S OB however, may be related to untreated JUAN and tobacco abuse [facility] Cardiology;sleep viviana nding :no further reports h is stress PET was normal [facility] Cardiology;sleep viviana nding :neg egfr and uacr and dd and tsh n eg egfr and lipase, neg hiv and rpr and chest ct Purvijose l Rodrigezkalerachel [facility] :neg pet 24, neg sxtress echo 17 Lawrence Payton MD :ef 60, pro less hunt 36 Lawrence quinonez MD :6.1 Lawrence Payton MD Cardiology [place] rachel [facility] Cardiology:weight loss encourage d. [place] Rainkalerachel [facility] Cardiology:cessation encouraged [place] [facility] Cardiology:trig 557 on last labs O n statin W ill update lipid panel and check HgbA1C as patient reports now diabetic H is updated medication list for this problem includes: Crestor 20 Mg Tablet (Rosuvastatin) ..... Take 1 tablet by mouth every night [place] [facility] Cardiology:Continues to have reports of chest pain that is worse with exertion and better with rest-more typical in nature E KG today shows sinus tachycardia W ill update labs W ill update CXR H ave recommended PET Stress as treadmill test previously showed poor exercise tolerance [place] [facility] Cardiology:Last echo showed EF of 60% with diastolic dysfunctino H e has had increasing SOB W ill do CXR to look for any pulm vasc congestion W ill also check pBNP W ill add Jardiance as well Purvijose l Rodrigezkalerachel [facility] :nml pap Lawrence Payton MD Cardiology Lawrence Payton MD Cardiology Lawrence Payton MD Cardiology Lawrence Payton MD Cardiology:neg egfr and lipase, neg hiv and rpr and chest ct Lawrence Payton MD Cardiology Lawrence Payton MD Cardiology:neg stress echo 17 Forbes yi Payton MD Date Name D-DIMER, QUANTITATIV E TSH, free T4, total T3 EKG DLCO - 37736 FRC - 72747 FVC - 07846 CXR- PA/Lat CBC (INCLUDES DIFF/P LT) PROBNP, [...]
--- OUTSIDE RECORDS SUMMARY | 2024-07-12 01:22 | XMS_ITS | Clinical Summary ---
Author Organization [facility] [employer] Address [address] [place] [address] Care Team Providers Care Film Cleaner Name Role Phone Shiva Garciajamin Fountainmis SHIP LABORER-VITICULTURE TEACHER Primary Care Pro vider Source Comments [facility] [employer],non-owned Affiliates and Associated Physician Practices is amultiple site organization consisting of ambulatory clinics and hospital sitesin [place], [place], [place] and [place]. This disclosure is being madepursuant to the Care Everywhere program and may not contain all information available regarding this patient. Last updated 17.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 Interventions: Insurance [facility] Care Teams Film Cleaner Relationship Specialty Start Date End Date Tammy Garcia APRN-JOI [address] [place] [phone] [facility] - General 09/14/18
--- OUTSIDE RECORDS SUMMARY | 2024-07-12 01:22 | XMS_ITS | Clinical Summary ---
Author Organization [facility] Address [address] [place] [address] Care Team Providers Care School Coordinator Name Role Phone Unavailable Primary Care Provider Unavailabl e Social History Tobacco Use Types Packs/Day Years Used Date Smoking Tobacco: Never Assessed Sex and Gender Information Value Date Recorded Sex Assigned at Not on file Legal Sex Male 12:54 AM HEALTH OUTCOMES LIAISON Gender Identity Not on file Sexual Orientation [...]
== END 2024-07-12 00:45 | disposition left against medical advice (07) ==
LOC: ANHED 07-12 01:20
PROVIDERS: PCP Emergency Medicine
DX: R25.8 Other abnormal involuntary movements (principal)
CPT/HCPCS: 99199

== ENCOUNTER 2024-07-17 21:19 | Emergency (ER) | payer OTHER, SELFPAY ==
[2024-07-17] VITALS (11 sets, daily range): BP systolic 98–132; BP diastolic 57–93; PULSE 68–114; RESP 15–29; TEMP 36.5; O2SAT 91–100
--- NOTE | ~2024-07-17 | XR_ITS ---
Clinical Indication: Chest pain AP and lateral views of the chest: Comparison: 10/12/2022 Findings: The lungs are clear, without evidence of focal consolidation or pleural effusion. Cardiome diastinal silhouette is within normal limits. Bones and soft tissues are unremarkable. Impression: Normal chest. Reviewed, dictated and finalized at location . Impression: Normal chest.
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
--- OUTSIDE RECORDS SUMMARY | 2024-07-17 21:20 | XMS_ITS | CONTINUITY OF CARE DOCUMENT ---
Author Name murray gao Address Unknown Organization [facility] Address [address] [place] [address] Phone [phone] Care Team Providers Care Bindery Production Manager Name Role Phone Lawrence Payton MD Unavailable [phone] PAULINE BANDA MD Unavailable [phone] PAULINE BANDA MD Unavailable [phone] PROBLEMS Condition Status Date Provider Notes PREDIABETES; [...] In-person encounter Office Visit Lawrence Payton MD [facility] Screening 07/28 - 07/28 In-person encounter Office Visit Lawrence Payton MD [facility] Office 07/28 - 07/28 In-person encounter Office Visit Lawrence Payton MD [facility] 11/12 - 11/12 In-person encounter Office Visit Lawrence Payton MD [facility] SchizophreniaObesityTobacco dependence, continuousScreeningHypertriglyceridemiaThrombocytos is NML B12 AND IRONcovid ;2020;HAD VACCINEHydronephrosisBACK PAIN;CHRONICChest pain, atypical VITAL SIGNS Date Observation Value Provider Body Mass Index (Ratio) 36.77 kg/m2 Efra Payton MD blood pressure, cuff size regular Jonny aguayo Espinoza blood pressure, diastolic 82 mm[Hg] Ta olivire Espinoza blood pressure, systolic 112 mm[Hg] [facility] oxygen saturation, oximetry 97 % Ioana Espinoza respiratory rate E&M 12 /min [facility] 99 /min Ioana Espinoza weight [...] 8 Absolute Neutrophil count 7957 cells/mcL [employer] [id number] High 8 mean platelet volume 10.6 fL [...] 4 Absolute Neutrophil count 5400 cells/mcL [employer] [id number] Normal 4 mean platelet volume 10.5 fL [...] TABLET BY MOUTH EVERY DAY Purvi Ventimiglia CABIN FURNISHINGS INSTALLER Crestor 20 mg tablet active TAKE 1 TABLET BY MOUTH ONCE A DAY Purvi Ventimiglia [employer]IN FURNISHINGS INSTALLER Jardiance 10 mg tablet active TAKE 1 TABLET BY MOUTH EVERY DAY Purvi Ventimiglia [employer]IN FURNISHINGS INSTALLER Vraylar 4.5 mg capsule active Purvi Ventimiglia CABIN FURNISHINGS INSTALLER sertraline 100 mg tablet active Purvi Ventimiglia CABIN FURNISHINGS INSTALLER prazosin 5 mg capsule active Purvi Ventimiglia CABIN FURNISHINGS INSTALLER lamotrigine 25 mg tablet active Purvi Ventimiglia CABIN FURNISHINGS INSTALLER Crestor 20 mg tablet completed Take 1 tablet by mouth every night - Purvi Ventimiglia CABIN FURNISHINGS INSTALLER ergocalciferol (vitamin D2) 1,250 mcg (50,000 unit) capsule active Take 1 capsule by mouth once a week Purvi Ventimiglia CABIN FURNISHINGS INSTALLER aspirin 81 mg tablet,chewable completed TAKE 1 TABLET BY MOUTH EVERY DAY - Purvi Ventimiglia CABIN FURNISHINGS INSTALLER divalproex 500 mg tablet extended release 24 hr completed - Purvi Ventimiglia [facility] divalproex 250 mg tablet extended release 24 hr completed - Purvi Ventimiglia [facility] aripiprazole 5 mg tablet completed - [facility] sertraline 50 mg tablet completed - [facility] divalproex unspecified unspecified completed - Lawrence Payton MD SOCIAL HISTORY Date Observation Value Provider personal history of marijuana use no Purvi Ventimiglia [facility] drug use yes Purvi Ventimig naye [facility] alcohol use no Purvi Ventimig naye [facility] smoking/tobacco cess ation, patient education and counseling yes Purvi Ventimiglia [facility] smoking history, tot al pack/day 1.5 Purvi Ventimiglia [facility] cigarette use yes Purvi Ventimi glia [facility] smoking status Current every day smoker A amelia Ventimiglia [facility] personal history of marijuana use no Purvi Ventimiglia [facility] drug use no Purvi Ventimig naye [facility] alcohol use no Purvi Ventimig naye [facility] smoking/tobacco cess ation, patient education and counseling yes Purvi Ventimiglia [facility] smoking history, tot al pack/day 1.5 Purvi Ventimiglia [facility] cigarette use yes Purvi Ventimi glia [facility] smoking status Current every day smoker A amelia Ventimiglia [facility] smoking/tobacco cess ation, patient education and counseling yes Lawrence Payton MD social history E&M S moking History: P franzt currently smokes every day. Lawrence Payton MD social history reviewed E&M revi ewed - no changes required Lawrence Payton MD smoking history, tot al pack/day 1.5 Charles nel cigarette use yes Charles Butterfield ay smoking status Current every day smoker J saeed INSURANCE PROVIDERS Payer name Policy type / Coverage type Chilo red republican [employer] MEDICAID (2) Medicaid [id number] ADVANCE DIRECTIVES Name Date DISCUSSED - NO DECISION MADE TREATMENT PLAN Date Name Performer [id number],C,nml pap Anitha Payton MD [id number],SLawrence MD [id number],SLawrence MD [id number],SLawrence MD [id number],C,n eg egfr and lipase, neg hiv and rpr and chest ct Lawrence Payton MD [id number],SLawrence MD [id number],S,neg stress ec ho 17 Lawrence Payton MD Cardiology;sleep peinding :cessa tion encouraged [facility] Cardiology;sleep viviana nding :glucose 242 on recent labs b egin Tiffaniejose cance [facility] Cardiology;sleep peinding :on re placement therapy [facility] Cardiology;sleep viviana nding :LDL 115 T rig 193 r emains on statin H is updated medication list for this problem includes: Crestor 20 Mg Tablet (Rosuvastatin) ..... Take 1 tablet by mouth every night [facility] Cardiology;sleep viviana nding :with continued SOB. pBNP 36 on recent labs w ill trial Jardiance S OB however, may be related to untreated JUAN and tobacco abuse [facility] Cardiology;sleep viviana nding :no further reports h is stress PET was normal [facility] Cardiology;sleep viviana nding :neg egfr and uacr and dd and tsh n eg egfr and lipase, neg hiv and rpr and chest ct Purvijose l Rodrigezkalerachel [facility] :neg pet 24, neg sxtress echo 17 Lawrence Payton MD :ef 60, pro less hunt 36 Lawrence quinonez MD :6.1 Lawrence Payton MD Cardiology [place] rachel [facility] Cardiology:weight loss encourage d. [place] Rain[place]erachel [facility] Cardiology:cessation encouraged [place] [facility] Cardiology:trig 557 on last labs O n statin W ill update lipid panel and check HgbA1C as patient reports now diabetic H is updated medication list for this problem includes: Crestor 20 Mg Tablet (Rosuvastatin) ..... Take 1 tablet by mouth every night [place] [facility] Cardiology:Continues to have reports of chest pain that is worse with exertion and better with rest-more typical in nature E KG today shows sinus tachycardia W ill update labs W ill update CXR H ave recommended PET Stress as treadmill test previously showed poor exercise tolerance [place] [facility] Cardiology:Last echo showed EF of 60% with diastolic dysfunctino H e has had increasing SOB W ill do CXR to look for any pulm vasc congestion W ill also check pBNP W ill add Jardiance as well Purvijose l Rodrigezkalerachel [facility] :nml pap Lawrence Payton MD Cardiology Lawrence Payton MD Cardiology Lawrence Payton MD Cardiology Lawrence Payton MD Cardiology:neg egfr and lipase, neg hiv and rpr and chest ct Lawrence Payton MD Cardiology Lawrence Payton MD Cardiology:neg stress echo 17 Forbes yi Payton MD Date Name D-DIMER, QUANTITATIV E TSH, free T4, total T3 EKG DLCO - 71411 FRC - 51796 FVC - 45487 CXR- PA/Lat CBC (INCLUDES DIFF/P LT) PROBNP, [...]
--- OUTSIDE RECORDS SUMMARY | 2024-07-17 21:21 | XMS_ITS | Clinical Summary ---
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
--- OUTSIDE RECORDS SUMMARY | 2024-07-17 21:21 | XMS_ITS ---
Author Organization [facility] Address [address] [place] [address] Care Team Providers Care Sleeve Presser Operator Name Role Phone Celia Laureano Primary Care Provider [phone] REASON FOR VISIT Crisis Call/Hospital F/U Social History Sex Assigned At : Social History Observation Description Sex Assigned At Male Encounters Encounter Location Date Provider Diagnosis [address] [address] 11/11/2023 Celia Laureano Plan Of Treatment No Information Progress Notes * Cisco JINDOB:1975 ([age] yo M)Acc No.[id number]:11/11/2023 UNLOCKED PROGRESS NOTE Patient: Cisco MALDONADO Provider: Heron Laureano, DNP, DEALER ACCOUNTS INVESTIGATOR, PMHNP-BC :1975 A ge:47 Y S ex:Male Date:11/11/2023 Address:[address] [place] [address], [place] Subjective: * Chief Complaints: * 1 . Crisis Call/Hospital F/U. * Medical History: Objective: * Vitals: Assessment: Plan: * Treatment: * * Electronic signature of Nancy Joshi [id number] on 07/17/2024 at 09:20 PM CDT Sign off status: Pending * Provider: Heron Laureano DNP, DEALER ACCOUNTS INVESTIGATOR, PMHNP-BC Date: 0 11/11/2023 Generated for Printing/Faxing/eTransmitting on: 0 07/17/2024 09:20 PM CDT
--- OUTSIDE RECORDS SUMMARY | 2024-07-17 21:21 | XMS_ITS | Clinical Summary ---
Author Organization [facility] [employer] Address [address] [place] [address] Care Team Providers Care Belt Builder Name Role Phone Farrah Garciarachel Fountainmis DIET TECH-REPLENISHMENT MERCHANDISING ASSOCIATE Primary Care Pro vider Source Comments [facility] [employer],non-owned Affiliates and Associated Physician Practices is amultiple site organization consisting of ambulatory clinics and hospital sitesin [place], [place], [place] and [place]. This disclosure is being madepursuant to the Care Everywhere program and may not contain all information available regarding this patient. Last updated 17.[facility] [employer] Allergies No known active allergies Medications * [...] on file Legal Sex Male 7:01 PM GAS JOCKEY Gender Identity Not on file Sexual Orientation [...] 11:34 AM CDT Height 165.1 cm (5' 5) 11/02/2018 11:34 AM CDT Body Mass Index [...] the optimum level for you. Interventions: Insurance [facility] Care Teams Belt Builder Relationship Specialty Start Date End Date Tammy Garcia APRN-JOI [address] [place] [id number] [facility] - General 09/14/18
--- OUTSIDE RECORDS SUMMARY | 2024-07-17 21:21 | XMS_ITS ---
Author Organization [facility] Address [address] [place] [address] Care Team Providers Care Pest Control Service Representative Name Role Phone Celia Laureano Primary Care Provider [phone] REASON FOR VISIT Crisis Call/Hospital F/U Medications [...] Male Encounters Encounter Location Date Provider Diagnosis [address] [address] 10/21/2023 Celia Laureano Plan Of Treatment No Information Progress Notes * JANUARYCisco NicoleDOB:1975 ([age] yo M)Acc No.[id number]:10/21/2023 UNLOCKED PROGRESS NOTE Patient: Cisco MALDONADO Provider: Heron Laureano, JAYLENE, SPECIAL TECHNICAL OPERATIONS OFFICER, PMHNP-BC :1975 A ge:47 Y S ex:Male Date:10/21/2023 Address:[facility] [address] [facility] Subjective: * Chief Complaints: * 1 [...] * Electronic signature of Nancy Joshi , [id number] on 07/17/2024 at 09:21 PM CDT Sign off status: Pending * Provider: Heron Laureano, DNP, SPECIAL TECHNICAL OPERATIONS OFFICER, PMHNP- Date: 10/21/2023 Generated for Printing/Faxing/eTransmitting on: 0 07/17/2024 09:21 PM CDT
--- OUTSIDE RECORDS SUMMARY | 2024-07-17 21:21 | XMS_ITS | Data Portability ---
Author Organization [place] - [facility] Prim[facility] y [facility], [employer] Address [address] [place] [address] Assessment Encounter Date Assessment Date Assessment LastModified [...] diabetes and cholesterol levels. Referred to a chip drier/eitan tovar for formal dietary planning and education [...] time spent in any separately reportable services. Not available 12/13/2023 15:55:32 Plan of Treatment Reminders Order Date Submit Date Provider Last Modified By Organization Details Last Modified Time Details Appointments None recorded. Lab drug screen, urine 2023 [facility], [address], [place], [address], 15:30:42 lipid panel, serum 2023 [employer] [facility], [address] [place], [address], 10:41:46 CMP, serum or plasma 2023 [employer] [facility], [id number] [place], [address], 10:41:48 CBC 2023 [facility], [address] [place], [address], 11:26:35 magnesium, serum or plasma 2023 [employer] [facility], [address] [place], [address], 10:41:47 HbA1c (hemoglobi n A1c), blood [address] [address], [address] [place], [address], 10:44:16 urinalysis , complete [address] [facility], [address], JAY[place] Vasquez, [address], 11:26:[address]/dietiti an referral [address], [address] [place], [address], 11:13:59 Procedures None recorded. Surgeries None recorded. Imaging None recorded. Medication Orders None recorded. Patient TargetsNo targets recorded. Patient InstructionsNo instructions recorded. Reason for Referral Second Worker/dietitian Refer ral for Hyperglycemia due to type 2 diabetes mellitus Referring Physician: Leslie Argueta, Internal Medicine, Encounter Date: 12/13/2023 Results Created Date Observation Date Name Description Value Unit Range Abnormal Flag Note LastModifiedBy Organization Detail LastModifiedTime 12/13/1912/14/2023 LIPID PANEL , STAND VANESSA cholesterol, total 188 mg/dL <200 normal Not Available [employer] [facility] [address] [place], [address], 12/14/2023 10:41:46 12/13/1912/14/2023 LIPID PANEL , STAND VANESSA HDL cholesterol 40 mg/dL > or = 40 normal Not Available [employer] [facility] [address] [place], [address], 12/14/2023 10:41:46 12/13/1912/14/2023 LIPID PANEL , STAND VANESSA triglyceride s 157 mg/dL <150 high Not Available [employer] [facility] [address] [place], [address], 12/14/2023 10:41:46 12/13/1912/14/2023 LIPID PANEL , STAND [...] a valid ated novel luiso d browni veerett reid r accur acy than the Fried emmanuelle equat ion in the estim ation of LDL-C . Deisi messer SS et al. CARLOS. 2013; 310(1 9): 2061- 2068 (http ://ed ati on.Qu Kristy Acomni. com/f aq/FA Q164) Not Available [facility] [address], [place], [address], 12/14/2023 10:41:46 12/13/19 24 12/14/2023 LIPID PANEL , STAND VANESSA chol/HDLC ratio 4.7 (calc ) <5.0 normal Not Available [facility] [address] [place], [address], 12/14/2023 10:41:46 12/13/19 24 12/14/2023 LIPID PANEL , STAND VANESSA non HDL cholesterol 148 mg/dL _(channing c) <130 high For patie nts with diabe pretty plus 1 major ASCVD risk facto r, treat ing to a non-H DL-C goal of <100 mg/dL (LDL- C of <70 mg/dL ) is consi jada joy optio n. Not Available [facility] [address] [place], [address], 12/14/2023 10:41:46 10/12/14/2023 MAGNE SIUM magnesium 2.3 mg/dL 1.5-2. 5 normal Not Available [address], [address], 12/14/2023 10:41:47 12/13/1912/14/2023 COMPR EHENS RUDDY METAB OLIC PANEL glucose 105 mg/dL 65-99 high Fasti ng refer ence inter sumeet For someo ne witho ut known diabe pretty, a gluco se value betwe en 100 and 125 mg/dL is consi stent with predi abete s and shoul d be confi rmed with a follo w-up test. Not Available [address], [address], 12/14/2023 10:41:48 12/13/19 24 12/14/2023 COMPR EHENS RUDDY METAB OLIC PANEL urea nitrogen (BUN) 18 mg/dL 7-25 normal Not Available [address], [address], 12/14/2023 10:41:48 12/13/19 24 12/14/2023 COMPR EHENS RUDDY METAB OLIC PANEL creatinine 0.96 mg/dL 0.60-1 .29 normal Not Available [address], [address], 12/14/2023 10:41:48 12/13/19 24 12/14/2023 COMPR EHENS RUDDY METAB OLIC PANEL eGFR 99 mL/mi n/1.7 3m2 > or = 60 normal Not Available [address], [address], 12/14/2023 10:41:48 12/13/19 24 12/14/2023 COMPR EHENS RUDDY METAB OLIC PANEL BUN/creatini ne ratio SEE NOTE: (calc ) 6-22 Not Repor vi: BUN and Creat inine are withi n refer ence range . Not Available [address] [place], [address], 12/14/2023 10:41:48 12/13/1912/14/2023 COMPR EHENS RUDDY METAB OLIC PANEL sodium 138 mmol/ L 135-14 6 normal Not Available [address], [address], 12/14/2023 10:41:48 12/13/1912/14/2023 COMPR EHENS RUDDY METAB OLIC PANEL potassium 3.7 mmol/ L 3.5-5. 3 normal Not Available [address], [address], 12/14/2023 10:41:48 12/13/1912/14/2023 COMPR EHENS RUDDY METAB OLIC PANEL chloride 102 mmol/ L 98-110 normal Not Available [address], [address], 12/14/2023 10:41:48 12/13/1912/14/2023 COMPR EHENS RUDDY METAB OLIC PANEL carbon dioxide 29 mmol/ L 20-32 normal Not Available [address], [address], 12/14/2023 10:41:48 12/13/1912/14/2023 COMPR EHENS RUDDY METAB OLIC PANEL calcium 9.6 mg/dL 8.6-10 .3 normal Not Available [address], [address], 12/14/2023 10:41:48 12/13/1912/14/2023 COMPR EHENS RUDDY METAB OLIC PANEL protein, total 7.4 g/dL 6.1-8. 1 normal Not Available [address], [address], 12/14/2023 10:41:48 12/13/1912/14/2023 COMPR EHENS RUDDY METAB OLIC PANEL albumin 4.4 g/dL 3.6-5. 1 normal Not Available [address], [address], 12/14/2023 10:41:48 12/13/1912/14/2023 COMPR EHENS RUDDY METAB OLIC PANEL globulin 3.0 g/dL_ (calc ) 1.9-3. 7 normal Not Available [address], [address], 12/14/2023 10:41:48 12/13/1912/14/2023 COMPR EHENS RUDDY METAB OLIC PANEL albumin/glob ulin ratio 1.5 (calc ) 1.0-2. 5 normal Not Available [address], [address], 12/14/2023 10:41:48 12/13/1912/14/2023 COMPR EHENS RUDDY METAB OLIC PANEL bilirubin, total 0.6 mg/dL 0.2-1. 2 normal Not Available [address], [address], 12/14/2023 10:41:48 12/13/1912/14/2023 COMPR EHENS RUDDY METAB OLIC PANEL alkaline phosphatase 121 U/L 36-130 normal Not Available [facility] [address] [place], [address], 12/14/2023 10:41:48 12/13/19 24 12/14/2023 COMPR EHENS RUDDY METAB OLIC PANEL AST 34 U/L 10-40 normal Not Available [address], [address], 12/14/2023 10:41:48 12/13/19 24 12/14/2023 COMPR EHENS RUDDY METAB OLIC PANEL ALT 74 U/L 9-46 high Not Available [address], [address], 12/14/2023 10:41:48 12/13/1912/14/2023 CBC (H/H, RBC, INDIC ES, WBC, PLT) white blood cell count 10.1 thous and/u L 3.8-10 .8 normal Not Available [address], [address], 12/14/2023 12:02:02 12/13/1912/14/2023 CBC (H/H, RBC, INDIC ES, WBC, PLT) red blood cell count 5.42 bess on/uL 4.20-5 .80 normal Not Available [address], [address], 12/14/2023 12:02:02 12/13/19 24 12/14/2023 CBC (H/H, RBC, INDIC ES, WBC, PLT) hemoglobin 15.7 g/dL 13.2-1 7.1 normal Not Available [address], [address], 12/14/2023 12:02:02 12/13/1912/14/2023 CBC (H/H, RBC, INDIC ES, WBC, PLT) hematocrit 48.7 % 38.5-5 0.0 normal Not Available [address], [address], 12/14/2023 12:02:02 12/13/19 24 12/14/2023 CBC (H/H, RBC, INDIC ES, WBC, PLT) MCV 89.9 fL 80.0-1 00.0 normal Not Available [address], [address], 12/14/2023 12:02:02 12/13/19 24 12/14/2023 CBC (H/H, RBC, INDIC ES, WBC, PLT) MCH 29.0 pg 27.0-3 3.0 normal Not Available [address], [address], 12/14/2023 12:02:02 12/13/1912/14/2023 CBC (H/H, RBC, INDIC [...] nt's clini channing condi tion. Not Available [address], [address], 12/14/2023 12:02:02 12/13/1912/14/2023 CBC (H/H, RBC, INDIC ES, WBC, PLT) RDW 12.3 % 11.0-1 5.0 normal Not Available [address], [address], 12/14/2023 12:02:02 12/13/19 24 12/14/2023 CBC (H/H, RBC, INDIC ES, WBC, PLT) platelet count 528 thous and/u L 140-40 0 high Not Available [address], [address], 12/14/2023 12:02:02 12/13/19 24 12/14/2023 CBC (H/H, RBC, INDIC ES, WBC, PLT) MPV 10.3 fL 7.5-12 .5 normal Not Available [address], [address], 12/14/2023 12:02:02 12/13/19 24 12/14/2023 URINA LYSIS , COMPL ETE color DARK YELLOW yellow normal Not Available [facility] [address] [place], [address], 12/14/2023 12:21:31 12/13/1912/14/2023 URINA LYSIS , COMPL ETE appearance CLOUDY clear abnormal Not Available [address], [address], 12/14/2023 12:21:31 12/13/1912/14/2023 URINA LYSIS , COMPL ETE specific gravity 1.041 1.001- 1.035 high Not Available [address], [address], 12/14/2023 12:21:31 12/13/1912/14/2023 URINA LYSIS , COMPL ETE pH 5.5 5.0-8. 0 normal Not Available [address], [address], 12/14/2023 12:21:31 12/13/1912/14/2023 URINA LYSIS , COMPL ETE glucose 2+ negati ve abnormal Not Available [address], [address], 12/14/2023 12:21:31 12/13/1912/14/2023 URINA LYSIS , COMPL ETE bilirubin NEGATI VE negati ve normal Not Available [address], [address], 12/14/2023 12:21:31 12/13/1912/14/2023 URINA LYSIS , COMPL ETE ketones NEGATI VE negati ve normal Not Available [address], [address], 12/14/2023 12:21:31 12/13/1912/14/2023 URINA LYSIS , COMPL ETE occult blood NEGATI VE negati ve normal Not Available [address], [address], 12/14/2023 12:21:31 12/13/1912/14/2023 URINA LYSIS , COMPL ETE protein TRACE negati ve abnormal Not Available [address], [address], 12/14/2023 12:21:31 12/13/19 24 12/14/2023 URINA LYSIS , COMPL ETE nitrite NEGATI VE negati ve normal Not Available [address], [address], 12/14/2023 12:21:31 12/13/1912/14/2023 URINA LYSIS , COMPL ETE leukocyte esterase TRACE negati ve abnormal Not Available [address], [address], 12/14/2023 12:21:31 12/13/1912/14/2023 URINA LYSIS , COMPL ETE WBC 0-5 /hpf < or = 5 normal Not Available [address], [address], 12/14/2023 12:21:31 12/13/19 24 12/14/2023 URINA LYSIS , COMPL ETE RBC 0-2 /hpf < or = 2 normal Not Available [address], [address], 12/14/2023 12:21:31 12/13/19 24 12/14/2023 URINA LYSIS , COMPL ETE squamous epithelial cells NONE SEEN /hpf < or = 5 normal Not Available [address], [address], 12/14/2023 12:21:31 12/13/1912/14/2023 URINA LYSIS , COMPL ETE bacteria NONE SEEN /hpf none seen normal Not Available [address], [address], 12/14/2023 12:21:31 12/13/19 24 12/14/2023 URINA LYSIS , COMPL ETE calcium oxalate crystals MODERA TE /hpf none or few abnormal Not Available [facility] [address] [place], [address], 12/14/2023 12:21:31 12/13/19 24 12/14/2023 URINA LYSIS , COMPL ETE hyaline cast NONE SEEN /lpf none seen normal Not Available [facility] [address] [place], [address], 12/14/2023 12:21:31 12/13/1912/14/2023 HEMOG LOBIN A1C hemoglobin [...] diabe pretty for child serafin. Not Available [facility] [address] [place], [address], 12/14/2023 11:24:53 Result Notes None recorded. Problems Name Problem SNOMED Code Status Onset Date Resolution Date Notes Provider Name and Address Organization Details Recorded Time Hyperglycem ia due to type 2 diabetes mellitus 2334843466568 09 Active 2023 Leslie Argueta, QC LAB TECHNICIAN-BC, PMHNP-BC [address] [place], [address], [facility] 15:55:33 Essential hypertensio n [id number] Active 2023 Leslie Kassandra Kendall, QC LAB TECHNICIAN-BC, PMHNP-BC [address] [place], [address], [facility] 15:55:33 Problem Notes None recorded. Procedures Surgical History Date Name Laterality Status Provider Name and Address Organization Details Recorded Time tonsillectomy completed Cindy Roberto [facility] 12/10/2023 17:20:37 Back Surgery completed Cindy Roberto [facility] 12/10/2023 17:20:47 Imaging Results None recorded. Procedure [...] Body mass index (BMI) Body weight Systolic And Diastolic Provider Name and Address Organization Details Last Updated DateTime 97.9 [degF] 99 % 99 % 111 /min 18 /min 166.37 cm 33.1 kg/m2 70959.3 8 g 138/88 mm[Hg] Cindy Philippe [facility] 13:50:12 Social History Question Answer Notes LastModified by Organizat ion Details LastModified Time Tobacco Smoking Status Current Every Day Smoker Cindy salazar [facility] 12/07/2023 10:17:23 Do You Have An Advance Directive? No [email or web address] Information n ot available 12/07/2023 Are You Currently Sexually Active With Anyone Who Has Traveled (within The Last 12 Weeks) To A Zika-affected Area? No [email or web address] Information not available 12/07/2023 Do You Wear A Helmet When Biking? Yes [email or web address] Information not available 12/07/2023 Are You Blind Or Do You Have Difficulty Seeing? Yes njkeampzs37 Information n ot available 12/07/2023 Is Blood Transfusion Acceptable In An Emergency? Yes [email or web address] Information not available 12/07/2023 What Is Your Level Of Caffeine Consumption? None [email or web address] Information not available 12/07/2023 What Type Of Travel Coordinator Do You Use? None [email or web address] Information not available 12/07/2023 What Is Your Code Status? Full Code Information not available 12/07/2023 In The 14 Days Before Symptom Onset, Have You Had Close Contact With A Laboratory-confirm ed COVID-19 While That Case Was Ill? No [email or web address] Information n ot available 12/07/2023 In The 14 Days Before Symptom Onset, Have You Had Close Contact With A Person Who Is Under Investigation For COVID-19 While That Person Was Ill? No [email or web address] Information not available 12/07/2023 Have You Been To An Area Known To Be High Risk For COVID-19? No [email or web address] Information not available 12/07/2023 Are You Deaf Or Do You Have Serious Difficulty Hearing? No upaxdfwrt60 Information not available 12/07/2023 What Type Of Diet Are You Following? REGULAR uceccanow92 Information n ot available 12/07/2023 Have You Processed Blood Or Body Fluids From An Ebola Virus Disease Patient Without Appropriate PPE? No [email or web address] Information not available 12/07/2023 Do You Reside In Or Have You Traveled To An Area Where Ebola Virus Transmission Is Active? No xvkrkmwqy10 Information not available 12/07/2023 What Is The Highest Grade Or Level Of School You Have Completed Or The Highest Degree You Have Received? [id number] xyrvlcljo34 Information not available 12/07/2023 Have There Been Any Changes To Your Family Or Social Situation? No [email or web address] Information no t available 12/13/2023 Are There Any Guns Present In Your Home? No [email or web address] Information not available 12/07/2023 Which Of Your Hands Is Dominant? Right khiysmbpt61 Information n ot available 12/07/2023 Have You Recently Or Are You Planning To Travel To An Area With Zika Virus? No hxucpzrle50 Information not available 12/07/2023 Do You Have A Medical Power Of Energy Derivatives Trader? No efnswqocm05 Information not available 12/07/2023 What Was The Date Of Your Most Recent Tobacco Screening? 12/13/2023 [email or web address] Information not available 12/13/2023 How Many Children Do You Have? 1 [email or web address] Information not available 12/07/2023 What Is Your Current Pack Years? 30ormorepack years [email or web address] Information not available 12/13/2023 Do You Have Any Pets? Yes sxqqguogm20 Information not available 12/07/2023 Do You Use Protection During Sex? No ikgtmzfckt750 Information not available 12/13/2023 What Is Your Relationship Status? Single rcaeufpyh94 Information not available 12/07/2023 Do You Use Your Seat Belt Or Car Seat Routinely? Yes fejdfuudf21 Information not available 12/07/2023 Are You Sexually Active? Yes badoawvmqk647 Information not available 12/13/2023 Do You Have Smoke And Carbon Monoxide Detectors In Your Home? Yes dlozdufug62 Information not available 12/07/2023 At What Age Did You Start Smoking Tobacco? 32 uxtkocsmkp947 Information not available 12/13/2023 Are You Passively Exposed To Smoke? No lxfddpdac71 Information no t available 12/07/2023 How Much Tobacco Do You Smoke? 1 PPW mebygvlsd26 Information not available 12/07/2023 Do You Participate In Social Media? No iprrcvsnv22 Information not available 12/07/2023 Do You Use Sunscreen Routinely? No qetbfzxrz38 Information not available 12/07/2023 How Many Years Have You Smoked Tobacco? 10 yfajjjijs46 Information not available 12/07/2023 Have You Recently Traveled Abroad? No qvwbidfxw03 Information not available 12/07/2023 Do You Have Difficulty Walking Or Climbing Stairs? No Information not available 12/07/2023 Are You Currently In School? No qvlbdgxeh45 Information not available 12/07/2023 Do You Have Any Dietary Restrictions? No mkbhgybyo52 Information not available 12/07/2023 Sex: Unknown Functional Status Question Answer Note LastModified by Organization Details LastModified Time Do you use any illicit or recreational drugs? No History of methamphetamine use, but not currently. caguado Information not available 12/13/2023 Do you or have you ever used any other forms of tobacco or nicotine? No qzzwgoztd42 Information not available 12/07/2023 What is your level of alcohol consumption? None cwuqcfant05 Information not available 12/07/2023 Are you currently employed? No Information not available 12/07/2023 Do you have transportation difficulties? Yes Information not available 12/07/2023 Are you able to walk? YESWOREST vbxfyibds92 Information not available 12/07/2023 Do you have difficulty doing errands alone? Yes mvsryewvw79 Information not available 12/07/2023 Are you able to care for yourself? Yes nxobjjyfl66 Information not available 12/07/2023 Do you have difficulty dressing or bathing? No ylmcvtdia05 Information not available 12/07/2023 What is your exercise level? None khhisehgc84 Information not available 12/07/2023 Mental Status Question Answer Note LastModified by Organizat ion Details LastModified Time Do you feel stressed (tense, restless, nervous, or anxious, or unable to sleep at night)? [id number] ycjfkuhgs83 Information not available 12/07/2023 Do you have difficulty concentrating, remembering or making decisions? Yes ylgexcehj80 Information no t available 12/07/2023 Family History Relationship Description Onset Age of this Age Resolved Age Notes LastModified by Organization Details LastModified Time Mother Arthritis [email or web address] Not avail able 12/10/2023 17:21:03 Father Arthritis [email or web address] Not avail able 12/10/2023 17:21:03 Father Diabetes mellitus gogtoamwq16 Not available 11/22 17:21:12 Medical History Condition Response Anxiety Disorder Y Musculoskeletal Diseases / Disorders Eye Disease / Disorders Y Hospitalizations Y Ear, Nose, Throat Diseases / Disorders Y Infectious Disease/Disorders/Virus Y Hematological Diseases / Disorders Y Glaucoma N Fractures Schizophrenia Y Osteoarthritis Diabetes Y Gastrointestinal Diseases / Disorders Y Hyperlipidemia Y Alcohol / Drug Abuse Y Hypertension Y Past Encounters Encounter ID Performer Location Encounter Start Date Encounter Closed Date Diagnosis/Indication Diagnosis SNOMED-CT Code Diagnosis ICD10 Code Diagnosis Note [id number] Leslie Kassandra Kendall, QC LAB TECHNICIAN-BC, PMHNP- Main Office [address] [place] [address] 12/13/2023 13:42:42 12/13/2023 15:56:59 Essential hypertension 31235106 I10 Hyperglyce tamra due to type 2 diabetes mellitus 6998205916 09331 E11.65 Screening for cardiovascular system disease 092047545 Z13.6 History of drug abuse 37 3934974 F19.11 Health Concerns Section Related Observation LastModified by Organization Detai ls LastModified Time None Recorded Concern Status LastModified by Organization Details LastModified Time None Recorded Advance Directives Directive N: Payers Encounter Date Sequence Insurance Name Policy Number Policy Gonzalez Covered Member ID Gonzalez Member ID Guarantor Name 12/13/2023 1 [facility] ON OR AFTER 08/22/20 (MEDICAID REPLACEMENT - HMO) Cisco Jin [id number] Cisco Jin Notes Date Note Type Note [...] but has not yet made significant changes. Leslie Argueta, CEM-MICHAEL, PMHNP- [address] [place], [address], [facility] 12/13/2023 15:56:23
--- NOTE | 2024-07-17 21:27 | ECG_ITS ---
Test Date: 2024-07-17 21:40:46 Measurements Intervals [place] Rate: 100 P: 42 HI: 157 QRS: 16 QRSD: 105 T: 38 QT: 341 QTc: 440 Interpretive Statements SINUS TACHYCARDIA INCOMPLETE RIGHT BUNDLE BRANCH BLOCK [90+ ms QRS DURATION, TERMINAL R IN V1/V2, 40+ ms S IN I/aVL/V4/V5/V6] No previous ECG available for comparison Electronically Signed On 07-18-2024 14:01:25 CDT by Jessica Garcia M.D.
[2024-07-17 21:47] LABS: Glucose Point of Care 168 mg/dl (65-105)
--- OUTSIDE RECORDS SUMMARY | 2024-07-17 21:50 | XMS_ITS | Clinical Summary ---
Author Organization [facility] [employer] Address [address] [place] [address] Care Team Providers Care Billing Services Manager Name Role Phone Farrah Garciarachel [employer] Primary Care Pro vider Source Comments [facility] [employer],non-owned Affiliates and Associated Physician Practices is amultiple site organization consisting of ambulatory clinics and hospital sitesin [place], [place], [place] and [place]. This disclosure is being madepursuant to the Care Everywhere program and may not contain all information available regarding this patient. 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 Interventions: Insurance [facility] Care Teams Billing Services Manager Relationship Specialty Start Date End Date Tammy Garcia APRN-JOI [address] [place] [phone] [facility] - General 09/14/18
--- OUTSIDE RECORDS SUMMARY | 2024-07-17 21:50 | XMS_ITS | Clinical Summary ---
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
--- OUTSIDE RECORDS SUMMARY | 2024-07-17 21:50 | XMS_ITS | CONTINUITY OF CARE DOCUMENT ---
Author Name murray gao Address Unknown Organization [facility] Address [address] [place] [address] Phone [phone] Care Team Providers Care Paint Tinter Name Role Phone Lawrence Payton MD Unavailable [phone] PAULINE BANDA MD Unavailable [phone] PAULINE BANDA MD Unavailable [phone] PROBLEMS Condition Status Date Provider Notes PREDIABETES; [...] MD inclonsi ue sleep Hypertriglyceridemia active Lawrence Mcmuleln nml ldl, hiigh crp and low lpa Thrombocytosis NML B12 AND IRON active Lawrence Payton MD covid 19;2020;HAD VACCINE active Lawrence fernandez MD Hydronephrosis active Lawrence Payton MD mild one side 21 BACK PAIN;CHRONIC active Lawrence Payton MD Chest pain, atypical active Lawrence Mcmullen ENCOUNTERS Date Type Provider Location Encounter Diag nosis 10/12 - 10/12 In-person encounter Office Visit Lawrence Payton MD [place] [facility] Screening 07/28 - 07/28 In-person encounter Office Visit Lawrence Payton MD [facility] Office 07/28 - 07/28 In-person encounter Office Visit Lawrence Payton MD [place] [facility] 11/12 - 11/12 In-person encounter Office Visit Lawrence Payton MD [place] [facility] SchizophreniaObesityTobacco dependence, continuousScreeningHypertriglyceridemiaThrombocytos is NML B12 AND IRONcovid ;2020;HAD VACCINEHydronephrosisBACK PAIN;CHRONICChest pain, atypical VITAL SIGNS Date Observation Value Provider Body Mass Index (Ratio) 36.77 kg/m2 Efra Payton MD blood pressure, cuff size regular Jonny aguayo Espinoza blood pressure, diastolic 82 mm[Hg] Ta olivier Espinoza blood pressure, systolic 112 mm[Hg] [facility] oxygen saturation, oximetry 97 % Ioana Espinoza respiratory rate E&M 12 /min [facility] 99 [facility]min Ioana Espinoza weight E&M 221 [lb_av] Ioana Espinoza height E&M 65 [in_i] Ioana Espinoza Body Mass Index (Ratio) 37.11 kg/m2 Efra Payton MD blood pressure, diastolic 86 mm[Hg] Li nkLograjat blood pressure, systolic 119 mm[Hg] Vera kLograjat blood pressure, cuff size regular Tr boo Galvez blood pressure, diastolic 86 mm[Hg] Tr boo Galvez blood pressure, systolic 119 mm[Hg] Rajinder mhosen Galvez oxygen saturation, oximetry 95 % Mateusz [...] 8 Absolute Neutrophil count 7957 cells/mcL [employer] [id number] High 8 mean platelet volume 10.6 fL [...] 4 Absolute Neutrophil count 5400 cells/mcL [employer] [id number] Normal 4 mean platelet volume 10.5 fL [...] TABLET BY MOUTH EVERY DAY Purvi Ventimiglia RN [facility] Crestor 20 mg tablet active TAKE 1 TABLET BY MOUTH ONCE A DAY Purvi Ventimiglia RN [facility] Jardiance 10 mg tablet active TAKE 1 TABLET BY MOUTH EVERY DAY Purvi Ventimiglia RN [facility] Vraylar 4.5 mg capsule active Purvi Ventimiglia RN [facility] sertraline 100 mg tablet active Purvi Ventimiglia RN [facility] prazosin 5 mg capsule active Purvi Ventimiglia RN [facility] lamotrigine 25 mg tablet active Purvi Ventimiglia RN [facility] Crestor 20 mg tablet completed Take 1 tablet by mouth every night - Purvi Ventimiglia RN [facility] ergocalciferol (vitamin D2) 1,250 mcg (50,000 unit) capsule active Take 1 capsule by mouth once a week Purvi Ventimiglia RN [facility] aspirin 81 mg tablet,chewable completed TAKE 1 TABLET BY MOUTH EVERY DAY - Purvi Ventimiglia RN [facility] divalproex 500 mg tablet extended release 24 hr completed - Purvi Ventimiglia [facility] divalproex 250 mg tablet extended release 24 hr completed - Purvi Ventimiglia [facility] aripiprazole 5 mg tablet completed - [facility] sertraline 50 mg tablet completed - [facility] divalproex unspecified unspecified completed - Lawrence Payton MD SOCIAL HISTORY Date Observation Value Provider personal history of marijuana use no Purvi Ventimiglia [facility] drug use yes Puvri Ventimig naye [facility] alcohol use no Purvi Ventimig naye [facility] smoking/tobacco cess ation, patient education and counseling yes Purvi Ventimiglia [facility] smoking history, tot al pack/day 1.5 Purvi Ventimiglia [facility] cigarette use yes Purvi Ventimi glia [facility] smoking status Current every day smoker A amelia Ventimiglia [facility] personal history of marijuana use no Purvi Ventimiglia [facility] drug use no Purvi Ventimig naye [facility] alcohol use no Purvi Ventimig naye [facility] smoking/tobacco cess ation, patient education and counseling yes Purvi Ventimiglia [facility] smoking history, tot al pack/day 1.5 Purvi Ventimiglia [facility] cigarette use yes Purvi Ventimi glia [facility] smoking status Current every day smoker A amelia Ventimiglia [facility] smoking/tobacco cess ation, patient education and [...] green party ID [place] MEDICAID (2) Medicaid [id number] ADVANCE DIRECTIVES Name Date DISCUSSED - NO DECISION MADE TREATMENT PLAN Date Name Performer [id number],C,nml pap Anitha Payton MD [id number],SLawrence MD [id number],SLawrence MD [id number],SLawrence MD [id number],C,n eg egfr and lipase, neg hiv and rpr and chest ct Lawrence Payton MD [id number],SLawrence MD [id number],S,neg stress ec ho 17 Lawrence Payton MD Cardiology;sleep peinding :cessa tion encouraged [facility] Cardiology;sleep viviana nding :glucose 242 on recent labs b egin Tiffaniejose cance [facility] Cardiology;sleep peinding :on re placement therapy [facility] Cardiology;sleep viviana nding :LDL 115 T rig 193 r emains on statin H is updated medication list for this problem includes: Crestor 20 Mg Tablet (Rosuvastatin) ..... Take 1 tablet by mouth every night [facility] Cardiology;sleep viviana nding :with continued SOB. pBNP 36 on recent labs w ill trial Jardiance S OB however, may be related to untreated JUAN and tobacco abuse [facility] Cardiology;sleep viviana nding :no further reports h is stress PET was normal [facility] Cardiology;sleep viviana nding :neg egfr and uacr and dd and tsh n eg egfr and lipase, neg hiv and rpr and chest ct Purvijose l Rodrigezkalerachel [facility] :neg pet 24, neg sxtress echo 17 Lawrence Payton MD :ef 60, pro less hunt 36 Lawrence quinonez MD :6.1 Lawrence Payton MD Cardiology [place] rachel [facility] Cardiology:weight loss encourage d. Greene Rainkalerachel [facility] Cardiology:cessation encouraged Greene Mary Alice [facility] Cardiology:trig 557 on last labs O n statin W ill update lipid panel and check HgbA1C as patient reports now diabetic H is updated medication list for this problem includes: Crestor 20 Mg Tablet (Rosuvastatin) ..... Take 1 tablet by mouth every night Greene Mary Alice [facility] Cardiology:Continues to have reports of chest pain that is worse with exertion and better with rest-more typical in nature E KG today shows sinus tachycardia W ill update labs W ill update CXR H ave recommended PET Stress as treadmill test previously showed poor exercise tolerance Greene Mary Alice [facility] Cardiology:Last echo showed EF of 60% with diastolic dysfunctino H e has had increasing SOB W ill do CXR to look for any pulm vasc congestion W ill also check pBNP W ill add Jardiance as well Purvijose l Rodrigezkalerachel [facility] :nml pap Lawrence Payton MD Cardiology Lawrence Payton MD Cardiology Lawrence Payton MD Cardiology Lawrence Payton MD Cardiology:neg egfr and lipase, neg hiv and rpr and chest ct Lawrence Payton MD Cardiology Lawrence Payton MD Cardiology:neg stress echo 17 Forbes yi Payton MD Date Name D-DIMER, QUANTITATIV E TSH, free T4, total T3 EKG DLCO - 62079 FRC - 46938 FVC - 85150 CXR- PA/Lat CBC (INCLUDES DIFF/P LT) PROBNP, [...]
--- NOTE | 2024-07-17 21:53 | PC.NURSE ---
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 pt daughter also states he has a hx of taking bath salts and that sent that him over the edge
[2024-07-17 22:06] LABS: Basophils Absolute Auto 0.1 K/mm3 (0.0-0.1); Basophils Percent Auto 0.6 % (0.2-1.2); Eosinophils Absolute Auto 0.6 K/mm3 (0-0.3); Eosinophils Percent Auto 6.3 % (0-4.4); Hematocrit 44.9 % (42.0-52.0); Hemoglobin 14.8 g/dL (14.0-18.0); Immature Granulocyte Absolute 0.02 K/mm3 (0.00-0.031); Immature Granulocyte Percent A 0.2 % (0-0.5); Lymphocytes Absolute Auto 1.73 K/mm3 (0.9-3.2); Lymphocytes Percent Auto 17.5 % (18.3-44.2); Mean Corpuscular Hemoglobin 29.5 pg (26-34); Mean Corpuscular Volume 89.4 fl (80-100); Monocytes Absolute Auto 0.9 K/mm3 (0.1-0.6); Monocytes Percent Auto 8.6 % (2.6-8.5); Neutrophils Absolute Auto 6.6 K/mm3 (1.3-6.7); Neutrophils Percent Auto 66.8 % (45.5-73.1); Platelet Count Result 376 k/mm3 (150-375); Red Blood Count 5.02 M/mm3 (4.6-6.20); Red Cell Distribution Width 12.9 % (11.5-14.5); White Blood Count 9.9 K/mm3 (4.5-10.0)
[2024-07-17] MEDS: ASPIRIN 81 MG CHEWABLE TABLET 324 MG PO (22:15)
[2024-07-17 22:17] LABS: Alanine Aminotransferase 43 U/L (6-50); Albumin Level 4.2 g/dL (3.5-5.1); Alkaline Phosphatase 74 U/L (38-126); Anion Gap 7 mmol/L (4-12); Aspartate Amino Transferase 28 U/L (17-59); Bilirubin,Total 0.5 mg/dL (0.2-1.3); Blood Urea Nitrogen 14 mg/dL (9-20); Calcium 8.8 mg/dL (8.4-10.2); Carbon Dioxide 27 mmol/L (22-30); Chloride 105 mmol/L (98-107); Estimated CRCL calculation 100 ml/min; Estimated Glomerular Filt Rate > 60; Glucose 140 mg/dL (65-110); Lipase 47 U/L (23-300); Potassium 3.7 mmol/L (3.4-5.0); Prothrombin Time 13.1 Seconds (11.1-14.7); Sodium 139 mmol/L (137-145)
[2024-07-17 22:18] LABS: Partial Thromboplastin Time 27.8 Seconds (22.3-36.8)
[2024-07-17 22:30] LABS: Troponin I < 0.012 ng/mL (0.000-0.034)
[2024-07-17] MEDS: LORazepam INJ (*CRX) 2 MG/ML VIAL (22:35)
--- NOTE | 2024-07-17 22:39 | ED.ABDPAIN ---
HPI - Abdominal Pain General Chief Complaint: Abdominal Pain Stated Complaint: abd pain Time Seen by Provider: 07/17/24 21:42 Source: patient and family Limitations: other History of Present Illness HPI narrative: Patient presents with reportedly abdominal pain initailly but also chest pain per daughter. States she has also been sick. Complaining of shortnes of breath. No cough or diarrhea. LBM today non bloody but looks like critters. Patient is speaking nonsensically, stating he has tissue around his heart. In regards to other health history: states his PCP said his heart works at 50%. There is report of possible past use of bath salts causing brain damage. Also possible meth. He denies any SI/HI. Denies auditory or visual hallucinations but keeps seeing bugs on his legs and body and states there is bug juice....covid. Requesting a pick to be placed into his chest to release preassure. No abdominal pain now. Denies headache. Complainign of chest pain. Repeating people period. Rocking in bed and not redirectable. Related Data Home Medications ?Medication ?Instructions ?Recorded ?Confirmed ?Last Taken ?Type lisinopril 10 mg tablet 10 mg PO DAILY 06/17/19 06/17/19 Unknown History Allergies Allergy/AdvReac Type Severity Reaction Status Date / Time No Known Allergies Allergy Verified 07/17/24 21:35 [facility] Past Medical History Medical History (Updated 07/19/24 @ 00:00 by Corey Kwan) Diabetes Developmental delay, moderate Surgical History Surgical History No significant past surgical history Social History Social History Social History: Has a daughter Smoking status: Current every day smoker Substance use type: methamphetamine Other substance usage details: is denying meth use at this time. Living arrangements: with family Gender identity (if verbalized by the patient): Male Exam Narrative: GENERAL: well-nourished HEAD: Normocephalic, atraumatic. EYES: non icteric ENT: Nares clear, no rhinorrhea or epistaxis. Gross auditory acuity intact. NECK: Supple. No meningismus. CHEST: Speaking in full sentences. Tachypneic, panting at the time of exam. HEART: Regular rate and rhythm. . ABDOMEN: Soft, nondistended. No rigidity or guarding. Not peritoneal EXTREMITIES: Normal range of motion. No lower extremity edema. SKIN: Warm, dry. No appreciable bugs or bug bites. NEURO: No focal deficits. Alert. No aphasia or dysarthria. PSYCH: Congruent mood and affect. Bizarre behavior. Denies HI/SI. Denies visual or auditory hallucinations but repeatedly talking about bugs/bug juice in his chest and that he needs a pick to relieve the pressure. Speech is nonsensical at times. Course Vital Signs Vital signs: Vital Signs Temperature 97.7 F 07/17/24 21:24 Pulse Rate 114 H 07/17/24 21:24 Respiratory Rate 24 H 07/17/24 21:24 Blood Pressure 122/90 07/17/24 21:24 Pulse Oximetry 100 07/17/24 21:24 Oxygen Delivery Room Air 07/17/24 21:24 Temperature 97.7 F 07/17/24 21:24 Pulse Rate 92 07/18/24 02:15 Respiratory Rate 17 07/18/24 02:15 Blood Pressure 135/94 H 07/18/24 02:15 Pulse Oximetry 99 07/18/24 02:15 Oxygen Delivery Room Air 07/17/24 21:33 MDM - Abdominal Pain MDM Narrative Medical decision making narrative: Patient presents with report of abdominal pain initially but then chest pain which prompted daughter to bring him to hospital. In the emergency department he is afebrile vital signs notable for tachycardia and tachypnea. Was called to bedside at approximately 10:31 p.m. patient remains not redirectable, breathing 30 times a minute and complaining of chest pain and shortness of breath. Patient unable to follow commands to lay still to obtain a repeat EKG. 2 mg IM Ativan given. He is continuing to talk nonsensically including talking about bugs/bug juice being on him. No bugs/insects or bites have been appreciated by staff on patient's body. Thrombocytosis, chronic/stable. Mild hyperglycemia but without anion gap acidosis. HEART SCORE History 2 highly suspicious 1 moderately suspicious 0 slightly suspicious History score [address] depression/elevation not due to LBBB, LVH, or digoxin [address] depression but LBBB, LVH, nonspecific repolarization changes 0 normal ECG score 0 Age 2 >/= 65 1 45-64 0 <45 Age score 1 Risk factors (HTN, hypercholesterolemia, DM, obesity with BMI >30, current smoker or cessation </=3mo), positive fam hx with parent or sibling with CVD before age 65, atherosclerotic disease (prior ID, PCI/CABG, CVA/TIA, or peripheral arterial disease) 2 >/= 3 risk factors or history of atherosclerotic dz 1 - 1-2 risk factors 0 no known risk factors Risk factor score 2 (DM per review of EMR, obesity, smoker) Initial Troponin 2 >3 times normal limit 1 1-3 times normal limit 0 less than or equal to normal limit Troponin score 0 Total HEART Score 3. Lactic acid and D-dimer normal. GI cocktail famotidine are ordered. Patient denies suicidal ideation, homicidal ideation, or auditory or visual hallucinations although she does seem to have delusions of bugs. Drug screen positive for amphetamines. Repeat troponin normal. Patient is reassessed at approximately 1:20 a.m.. He is resting comfortably, arouses to verbal stimuli. When asked how he is feeling, he states I feel like I got tricked.He cannot specify how. When asked about his chest pain and abdominal pain though he does state these are better. Daughter does still nurse that she feels comfortable taking him home. Lab Data Attestation: I reviewed the patient's lab results. 07/17/24 21:53 07/17/24 21:53 Labs: Lab Results 07/17/24 07/17/24 07/17/24 Range/Units 21:35 21:53 23:04 WBC 9.9 (4.5-10.0) K/mm3 RBC 5.02 (4.6-6.20) M/mm3 Hgb 14.8 (14.0-18.0) g/dL Hct 44.9 (42.0-52.0) % MCV 89.4 (80-100) fl MCH 29.5 (26-34) pg MCHC 33.0 (32-36) g/dl RDW 12.9 (11.5-14.5) % Plt Count 376 H (150-375) k/mm3 MPV 10.0 (7.4-10.4) fl Immature Gran % (Auto) 0.2 (0-0.5) % Neut % (Auto) 66.8 (45.5-73.1) % Lymph % (Auto) 17.5 L (18.3-44.2) % Dickens % (Auto) 8.6 H (2.6-8.5) % Eos % (Auto) 6.3 H (0-4.4) % Baso % (Auto) 0.6 (0.2-1.2) % Lymph # (Auto) 1.73 (0.9-3.2) K/mm3 Dickens # (Auto) 0.9 H (0.1-0.6) K/mm3 Eos # (Auto) 0.6 H (0-0.3) K/mm3 Baso # (Auto) 0.1 (0.0-0.1) K/mm3 Abs Immat Gran (auto) 0.02 (0.00-0.031) K/mm3 Absolute Neuts (auto) 6.6 (1.3-6.7) K/mm3 Absolute Nucleated RBC 0.000 (0.0-0.012) K/mm3 Nucleated RBC % 0.0 (0.0-0.2) % PT 13.1 (11.1-14.7) Seconds INR 1.0 APTT 27.8 (22.3-36.8) Seconds D-Dimer 0.38 (<0.48) ug/mL Sodium 139 (137-145) mmol/L Potassium 3.7 (3.4-5.0) mmol/L Chloride 105 (98-107) mmol/L Carbon Dioxide 27 (22-30) mmol/L Anion Gap 7 (4-12) mmol/L BUN 14 (9-20) mg/dL Creatinine 0.81 (0.7-1.3) mg/dL Estim Creat Clear Calc 100 ml/min Estimated GFR > 60 (59 - ) Glucose 140 H (65-110) mg/dL POC Capillary Glucose 168 H (65-105) mg/dl Lactic Acid 1.9 (0.7-2.0) mmol/L Calcium 8.8 (8.4-10.2) mg/dL Total Bilirubin 0.5 (0.2-1.3) mg/dL AST 28 (17-59) U/L ALT 43 (6-50) U/L Alkaline Phosphatase 74 (38-126) U/L Total Creatine Kinase 87 (55-170) U/L Troponin I < 0.012 (0.000-0.034) ng/mL Total Protein 7.0 (6.3-8.2) g/dL Albumin 4.2 (3.5-5.1) g/dL Lipase 47 (23-300) U/L Vitamin B12 777.0 (239-931) pg/mL Folate 13.7 (2.76->20) ng/mL TSH 2.060 (0.465-4.680) uIU/mL Urine Color (Yellow) Urine Appearance (Clear) Urine pH (5.0-9.0) Ur Specific [place] (1.001-1.035) Urine Protein (Negative) mg/dL Urine Glucose (UA) (Negative) mg/dL Urine Ketones (Negative) mg/dL Ur Blood (Man) (Negative) Urine Nitrate (Negative) Urine Bilirubin (Negative) Urine Urobilinogen (<2.0) mg/dL Add Ur Microanalysis Leukocyte Esterase Rfl (Negative) EDILSON/UL Urine RBC (0-2) /hpf Urine WBC (0-3) /hpf Ur Squamous Epith Cells (Few) /hpf Urine Bacteria /hpf Urine Casts Salicylates < 1.0 L (2-20) mg/dL Urine Opiates Screen (Negative) Urine Methadone Screen (Negative) Acetaminophen < 10 L (10-30) ug/mL Ur Barbiturates Screen (Negative) Ur Phencyclidine Scrn (Negative) Ur Amphetamine Screen (Negative) U Benzodiazepines Scrn (Negative) Urine Cocaine Screen (Negative) U Cannabinoids Screen (Negative) Ethyl Alcohol < 10 (<10) mg/dL Influenza A (RT-PCR) Negative (Negative) Influenza B (RT-PCR) Negative (Negative) RSV (RT-PCR) Negative (Negative) SARS-CoV-2 RNA (RT-PCR) Negative (Negative) 07/17/24 07/18/24 Range/Units 23:15 00:39 WBC (4.5-10.0) K/mm3 RBC (4.6-6.20) M/mm3 Hgb (14.0-18.0) g/dL Hct (42.0-52.0) % MCV (80-100) fl MCH (26-34) pg MCHC (32-36) g/dl RDW (11.5-14.5) % Plt Count (150-375) k/mm3 MPV (7.4-10.4) fl Immature Gran % (Auto) (0-0.5) % Neut % (Auto) (45.5-73.1) % Lymph % (Auto) (18.3-44.2) % Dickens % (Auto) (2.6-8.5) % Eos % (Auto) (0-4.4) % Baso % (Auto) (0.2-1.2) % Lymph # (Auto) (0.9-3.2) K/mm3 [place] # (Auto) (0.1-0.6) K/mm3 Eos # (Auto) (0-0.3) K/mm3 Baso # (Auto) (0.0-0.1) K/mm3 Abs Immat Gran (auto) (0.00-0.031) K/mm3 Absolute Neuts (auto) (1.3-6.7) K/mm3 Absolute Nucleated RBC (0.0-0.012) K/mm3 Nucleated RBC % (0.0-0.2) % PT (11.1-14.7) Seconds INR APTT (22.3-36.8) Seconds D-Dimer (<0.48) ug/mL Sodium (137-145) mmol/L Potassium (3.4-5.0) mmol/L Chloride (98-107) mmol/L Carbon Dioxide (22-30) mmol/L Anion Gap (4-12) mmol/L BUN (9-20) mg/dL Creatinine (0.7-1.3) mg/dL Estim Creat Clear Calc ml/min Estimated GFR (59 - ) Glucose (65-110) mg/dL POC Capillary Glucose (65-105) mg/dl Lactic Acid (0.7-2.0) mmol/L Calcium (8.4-10.2) mg/dL Total Bilirubin (0.2-1.3) mg/dL AST (17-59) U/L ALT (6-50) U/L Alkaline Phosphatase (38-126) U/L Total Creatine Kinase (55-170) U/L Troponin I < 0.012 (0.000-0.034) ng/mL Total Protein (6.3-8.2) g/dL Albumin (3.5-5.1) g/dL Lipase (23-300) U/L Vitamin B12 (239-931) pg/mL Folate (2.76->20) ng/mL TSH (0.465-4.680) uIU/mL Urine Color Yellow (Yellow) Urine Appearance Clear (Clear) Urine pH 7.5 (5.0-9.0) Ur Specific [place] 1.027 (1.001-1.035) Urine Protein Trace (Negative) mg/dL Urine Glucose (UA) Negative (Negative) mg/dL Urine Ketones Trace H (Negative) mg/dL Ur Blood (Man) Negative (Negative) Urine Nitrate Negative (Negative) Urine Bilirubin Negative (Negative) Urine Urobilinogen 1.0 (<2.0) mg/dL Add Ur Microanalysis Reviewed Leukocyte Esterase Rfl Trace H (Negative) EDILSON/UL Urine RBC 0-2 (0-2) /hpf Urine WBC 0-5 (0-3) /hpf Ur Squamous Epith Cells None seen (Few) /hpf Urine Bacteria None seen /hpf Urine Casts 0-2 Salicylates (2-20) mg/dL Urine Opiates Screen Negative (Negative) Urine Methadone Screen Negative (Negative) Acetaminophen (10-30) ug/mL Ur Barbiturates Screen Negative (Negative) Ur Phencyclidine Scrn Negative (Negative) Ur Amphetamine Screen Positive A (Negative) U Benzodiazepines Scrn Negative (Negative) Urine Cocaine Screen Negative (Negative) U Cannabinoids Screen Negative (Negative) Ethyl Alcohol (<10) mg/dL Influenza A (RT-PCR) (Negative) Influenza B (RT-PCR) (Negative) RSV (RT-PCR) (Negative) SARS-CoV-2 RNA (RT-PCR) (Negative) Imaging Data Attestation: I personally reviewed and interpreted this imaging study as follows: My impression: Cardiomegaly on my independent interpretation of chest x-ray Radiologist's impression: ITS Impressions Chest X-Ray 07/18/24 05:19 Impression: Normal chest. ECG Data EKG #1: Attestation: I personally reviewed and interpreted this ECG as follows: ECG completion date: 07/17/24 ECG completion time: 21:40 Prior ECG tracings: available for review (10/12/2022 showed sinus tachycardia.) Interpretation: Sinus tachycardia at a rate of 100 beats per minute. NM interval 157. QRS 105. QT/QTC 341/398. Incomplete RBBB given QRS less [id number]; RSR' M-shaped pattern in V1-V3; wide, slurred S wave in lateral leads (I, aVL though to a lesser extent V5-6). Good R-wave progression across the precordial leads. No T-wave inversions EKG #2: Attestation: I personally reviewed and interpreted this ECG as follows: ECG completion date: 07/17/24 ECG completion time: 22:41 Interpretation: Normal sinus rhythm at a rate of 81 beats per minute. NM interval 149. QRS 101. QT/QTC 364/401. No T-wave inversion. Good R-wave progression across the precordial leads. Discharge Plan Discharge Clinical Impression: Thrombocytosis, Hyperglycemia, Delusions of parasitosis, Chest pain, Abdominal pain, Amphetamine abuse Patient Disposition: Home Condition: Stable Instructions: Antibiotic Form, Chest Pain (ED), Methamphetamine Use Disorder (ED), Abdominal Pain (ED), Diabetic Hyperglycemia (ED) Additional Instructions: Recommend following up with your primary care physician. Your chest pain work up did not reveal a cause (chest xray, EKGs, and cardiac enzymes x2). You are otherwise low risk (but not NO risk) so recommend outpatient work up. Your primary care physician can help arrange this or, alternatively, the name of a cloth washer is listed below. There was no evidence of bugs/bug bites/bug juice on you. Your urine did test positive for amphetamines and sometimes people under the influence of this drug have this sensation. Trial stopping use of this drug and see if those symptoms resolve. Patient Language: Setswana Prescriptions: No Action lisinopril 10 mg tablet 10 mg PO DAILY [facility] 1-0.3 % drops 1 drp EACH EYE DAILY PRN (Reason: dry eye(s)) Qty: 15 0RF Follow-up/Referrals: Rosa Alcantar DO [Physician] - Aubrey Brown MD [Primary Care Provider] - Stand Alone Forms: Work/School Release IP Time of Disposition: 01:25
--- NOTE | 2024-07-17 22:40 | ECG_ITS ---
Test Date: 2024-07-17 22:41:42 Measurements Intervals [place] Rate: 81 P: 17 IL: 149 QRS: 20 QRSD: 101 T: 47 QT: 364 QTc: 423 Interpretive Statements SINUS RHYTHM INCOMPLETE RIGHT BUNDLE BRANCH BLOCK [90+ ms QRS DURATION, TERMINAL R IN V1/V2, 40+ ms S IN I/aVL/V4/V5/V6] Compared to ECG 07/17/2024 21:40:46 Sinus tachycardia no longer present Electronically Signed On 07-18-2024 14:02:12 CDT by Jessica Garcia M.D.
[2024-07-17 23:21] LABS: Acetaminophen < 10 ug/mL (10-30); Creatine Kinase 87 U/L (55-170); Ethanol < 10 mg/dL (<10); Lactic Acid Reflex 1.9 mmol/L (0.7-2.0); Salicylate < 1.0 mg/dL (2-20)
[2024-07-17 23:25] LABS: D Dimer 0.38 ug/mL (<0.48)
[2024-07-17 23:40] LABS: Barbiturate Screen Urine Negative (Negative); Benzodiazepines Screen Urine Negative (Negative)
[2024-07-17 23:47] LABS: Influenza A QL RT-PCR Negative (Negative); Influenza B QL RT-PCR Negative (Negative); RSV RNA, RT-PCR Negative (Negative); SARS-CoV-2 RNA PCR Negative (Negative)
[2024-07-17 23:48] LABS: Add Urine Microscopic? YES; Appearance Urine Clear (Clear); Bacteria Urine None Seen /hpf; Bilirubin Urine Negative (Negative); Blood Urine Negative (Negative); Color Urine Yellow (Yellow); Glucose Urine UA Negative (Negative); Ketones Urine Trace mg/dL (Negative); Leukocyte Esterase Ur Trace LEU/UL (Negative); Need Manual Microscopic Reviewed; Nitrate Urine Negative (Negative); Non Pathogenic Casts 0-2; Protein Urine Trace mg/dL (Negative); RBC Urine 0-2 /hpf (0-2); Specific Grav Ur 1.027 (1.001-1.035); Squamous Epithelial Cell Urine None Seen /hpf (Few); WBC Urine 0-5 /hpf (0-3); pH Urine 7.5 (5.0-9.0)
[2024-07-18] VITALS (16 sets, daily range): BP systolic 120–143; BP diastolic 78–104; PULSE 73–97; RESP 15–18; O2SAT 97–99
[2024-07-18 00:06] LABS: Amphetamine Screen Urine Positive (Negative)
[2024-07-18] MEDS: FAMOTIDINE 20 MG/2 ML VIAL IV PUSH (00:52)
[2024-07-18] MEDS: BELLADONNA ALK/PHENOB ELIX 10 ML, MAG HYDROX/ALUMINUM HYD/SIMETH 30 ML, LIDOCAINE 2% VI... PO (00:52)
[2024-07-18 01:03] LABS: Folic Acid 13.7 ng/mL (2.76->20)
[2024-07-18 01:15] LABS: Troponin I < 0.012 ng/mL (0.000-0.034)
[2024-07-18 01:52] LABS: Cannabinoid Screen Urine Negative (Negative); Cocaine Screen Urine Negative (Negative); Methadone Screen Urine Negative (Negative); Opiate Screen Urine Negative (Negative); Phencyclidine Screen Urine Negative (Negative)
== END 2024-07-18 02:17 | disposition home or self-care (01) ==
PROVIDERS: Emergency Provider Student in an Organized Health Care Education/Training Program; PCP Emergency Medicine
DX: R07.9 Chest pain, unspecified (principal); R10.9 Unspecified abdominal pain; F22 Delusional disorders; D75.839 Thrombocytosis, unspecified; E11.65 Type 2 diabetes mellitus with hyperglycemia; F15.10 Other stimulant abuse, uncomplicated; Z20.822 Contact with and (suspected) exposure to COVID-19; R62.50 Unspecified lack of expected normal physiological development in childhood; F17.200 Nicotine dependence, unspecified, uncomplicated; Z79.899 Other long term (current) drug therapy; R00.0 Tachycardia, unspecified; I45.10 Unspecified right bundle-branch block
CPT/HCPCS: 36415; 71046; 80053; 80143; 80179; 80307; 81001; 82077; 82550; 82607; 82746; 82948; 83605; 83690; 84443; 84484; 85025; 85380; 85610; 85730; 87637; 93005; 96374; 96375; 99284; A9270; J2060